=== PATIENT | male | born 1955 | race Caucasian/White ===

== ENCOUNTER 2022-02-10 00:15 | Day surgery (SDC) | payer MEDICARE, SELFPAY ==
[2022-01-29 13:26] VITALS: BMI 26.4
[2022-02-10 08:28] VITALS: BP 138/88; PULSE 91; RESP 16; TEMP 36; O2SAT 98
--- NOTE | 2022-02-10 08:30 | PM.HPGS ---
History of Present Illness History of Present Illness Consent: Risks, benefits, and alternatives have been discussed and questions answered. Patient agrees to proceed with procedure. Chief complaint: family hx of colon polyps Narrative: Derik Gurrola is a 66 year old male here for screening colonoscopy, last one in 2010 Review of Systems Constitutional: Constitutional: Denies headache(s) and Denies weakness Eyes: Eyes: Denies blurry vision ENT: Reports Normal hearing present, Denies headache(s) and Denies neck pain Cardiovascular: Cardiovascular: Denies chest pain and Denies dyspnea Respiratory: Respiratory: Denies dyspnea Gastrointestinal: Gastrointestinal: Reports no additional gastrointestinal complaints Genitourinary: Genitourinary: Denies dysuria Musculoskeletal: Musculoskeletal: Denies neck pain Integumentary/Breasts: Skin/Breast: Denies dry skin Neurologic: Reports Normal hearing present, Denies headache(s) and Denies weakness Psychiatric: Psychiatric: Denies anxiety Endocrine: Endocrine: Denies change in body appearance Hematologic/Lymphatic: Hematologic/Lymphatic: Denies easy bleeding Allergic/Immunologic: Allergic/Immunologic: Denies urticaria PMFSH Past Medical History Medical History (Updated 12/06/21 @ 10:55 by Betty Gray DO) Hepatitis C antibody test negative Vasectomy planned Surgical History Surgical History H/O lymph node biopsy Family History Family History Grandparent Diabetes mellitus Family history of genetic disorder Father Family history of cardiovascular disease Carcinoma of colon Social History Social History Smoking packs per day: 1 Smoking cigarettes per day: 20.0 Years smoked: 3 Smoking pack-years: 3.00 Smoking status: Former smoker Tobacco type: cigarettes Alcohol intake: never Substance use type: does not use Living arrangements: with family Spiritual care concerns: No Meds Home Medications and Allergies Home Medications Medication Instructions Recorded Confirmed Type lisinopril 10 mg tablet See Rx Instructions .ROUTE 11/25/21 02/10/22 Rx .COMPLEX #90 tablet simvastatin 10 mg tablet See Rx Instructions .ROUTE 11/25/21 02/10/22 Rx .COMPLEX #90 tablet Allergies Allergy/AdvReac Type Severity Reaction Status Date / Time methylprednisolone Allergy Unknown muscle pain Verified 02/10/22 08:27 Penicillins Allergy Unknown sick to Verified 02/10/22 08:27 his stomach rosuvastatin Allergy Unknown muscle pain Verified 02/10/22 08:27 Exam Const: General: comfortable and no acute distress HENMT: General nose exam: Normal nares present Eyes: General: appearance normal, both eyes and all related structures Neck: Neck: no JVD Resp: Auscultation: clear to auscultation bilaterally Cardio: Rate: regular rate Rhythm: regular rhythm GI: Inspection: non-distended GI Palp: Yes Soft to palpation Skin: General skin exam: normal color Neuro: General: gait normal Speech: normal speech Extrem: General: normal to inspection Psych: Mental Status: mental status grossly normal Assessment and Plan Assessment and plan (1) Screening for colon cancer: Code(s): Z12.11 - Encounter for screening for malignant neoplasm of colon Status: Acute Assessment and Plan: colonoscopy
[2022-02-10] MEDS: LACTATED RINGERS 1,000 ML 150 ML IV CONT (08:35)
--- NOTE | 2022-02-10 08:36 | WPDANESEPPF ---
Anes - Initial Pre Proc Eval Procedure: Operation Date: 02/10/22 09:30 Proposed Procedures p Screening Colonoscopy - Jak Antonio MD Date/Time: 02/10/22 08:36 Surgeon: Jak Antonio MD Pre Op Diagnosis: family hx of colon polyps Patient Data Age: 66 Gender: M Height: 1.8 m Weight: 86.5 kg Last Vital Signs Temp 96.8 F L 02/10/22 08:28 Pulse 91 02/10/22 08:28 Resp 16 02/10/22 08:28 BP 138/88 02/10/22 08:28 Pulse Ox 98 02/10/22 08:28 Allergies Allergy/AdvReac Type Severity Reaction Status Date / Time methylprednisolone Allergy Unknown muscle pain Verified 02/10/22 08:27 Penicillins Allergy Unknown sick to Verified 02/10/22 08:27 his stomach rosuvastatin Allergy Unknown muscle pain Verified 02/10/22 08:27 Home Medications Medication Instructions Recorded Confirmed Type lisinopril 10 mg tablet See Rx Instructions .ROUTE 11/25/21 02/10/22 Rx .COMPLEX #90 tablet simvastatin 10 mg tablet See Rx Instructions .ROUTE 11/25/21 02/10/22 Rx .COMPLEX #90 tablet Patient hx anesthesia problems: none Family hx anesthesia problems: none Results Review: All pre-operative results and documents have been reviewed as part of the pre-operative evaluation. [facility] Past Medical History Medical History (Updated 12/06/21 @ 10:55 by Betty Gray DO) Hepatitis C antibody test negative Vasectomy planned Surgical History Surgical History H/O lymph node biopsy Family History Family History Grandparent Diabetes mellitus Family history of genetic disorder Father Family history of cardiovascular disease Carcinoma of colon Social History Social History Smoking packs per day: 1 Smoking cigarettes per day: 20.0 Years smoked: 3 Smoking pack-years: 3.00 Smoking status: Former smoker Tobacco type: cigarettes Alcohol intake: never Substance use type: does not use Living arrangements: with family Spiritual care concerns: No Anes - Eval Final PreProcedure Day of Procedure 02/10/22 08:36 Patient weight: normal Heart: regular rate and rhythm Lungs: clear to auscultation Airway: Mallampati scale class II Neurological: alert and oriented Last oral intake: >/= 8 hours ASA classification: II Emergent: no Anesthetic plan: proceed Anesthesia type and monitoring: general GIVS and standard monitoring Results Review: All pre-operative results and documents have been reviewed as part of the pre-operative evaluation. Informed Consent: The patient's anesthetic plan and its attendant risks and benefits were discussed with the patient/family/POA. Questions were solicited and answers provided to the satisfaction of the patient/family/POA.
[2022-02-10 08:58] VITALS: BP 91/67; PULSE 92; RESP 20; O2SAT 93
[2022-02-10 09:08] VITALS: BP 92/75; PULSE 92; RESP 20; O2SAT 95
[2022-02-10 09:18] VITALS: BP 106/77; PULSE 90; RESP 20; O2SAT 96
--- NOTE | 2022-02-10 09:37 | SUR.PHASEII ---
DR GONZALEZ AWARE OF BLOOD PRESSURE 106/77, HR 92, PT AWAKE, TALKING, WALKING WITHOUT DIFFICULTY, NO CONCERNS. NO NEW ORDERS RECEIVED.
== END 2022-02-10 09:47 | disposition home or self-care (01) ==
PROVIDERS: PCP Family Medicine; Visit Provider Internal Medicine Gastroenterology
PROC: 0DJD8ZZ Inspection of Lower Intestinal Tract, Via Natural or Artificial Opening Endoscopic (ICD-10-PCS; CPT 45378; principal; 2022-02-10 09:30)
DX: Z12.11 Encounter for screening for malignant neoplasm of colon (principal); C18.7 Malignant neoplasm of sigmoid colon; K57.30 Diverticulosis of large intestine without perforation or abscess without bleeding; K64.8 Other hemorrhoids; Z87.891 Personal history of nicotine dependence
CPT/HCPCS: 45380; 45381; 88305; J2704; J7120

== ENCOUNTER 2022-02-14 08:32 | Outpatient (CLI) | payer MEDICARE, SELFPAY ==
--- NOTE | ~2022-02-14 | CT_ITS ---
EXAMINATION: CT abdomen pelvis w con EXAM DATE: 02/14/2022 09:22 INDICATION: C18.7 - Malignant neoplasm of sigmoid colon. TECHNIQUE: Spiral CT of the abdomen and pelvis was performed following intravenous injection of 100 m L Omnipaque 350. Axial, coronal and sagittal images of the abdomen and pelvis were reviewed. The do se-length product (DLP) for this examination was 540.95 mGy-cm. The exposure was tailored according to patient size (auto mA exposure control), and iterative reconstruction (ASIR) was used as additiona l dose reduction technique. There is no prior study for comparison. FINDINGS: The liver, spleen, adrenal glands and pancreas are unremarkable. No evidence of obstructi ve biliary disease. Along the dependent wall of the gallbladder. Portal and splenic veins are patent . Kidneys enhance symmetrically. There is no hydronephrosis. Prostate measures 5.5 cm transverse dimension, moderately enlarged. There are small bilateral inguinal fat-containing hernias. The bladd er is unremarkable. There is no retroperitoneal or pelvic lymphadenopathy. There is mild scattered arteriosclerotic disease. The appendix is normal. There is mild sigmoid colonic diverticulosis. There is no adjacent inflammat ory change to suggest diverticulitis. The stomach and small bowel are unremarkable. There is expecte d amount of colonic stool. No free intraperitoneal gas. The heart is normal in size. There are n o pericardial or pleural effusions. The lung bases are unremarkable. There are no osteoblastic or o steolytic lesions identified. IMPRESSION: 1. No evidence of metastatic disease. 2. Mild scattered colonic diverticulosis. 3. Small inguinal hernias. 4. Prostatomegaly. Reviewed, dictated and finalized at location A.
[2022-02-14 09:16] LABS: Estimated Glomerular Filt Rate 55
== END 2022-02-14 08:33 | disposition home or self-care (01) ==
PROVIDERS: PCP Family Medicine; Visit Provider Internal Medicine Gastroenterology
DX: C18.7 Malignant neoplasm of sigmoid colon (principal); K57.30 Diverticulosis of large intestine without perforation or abscess without bleeding; N40.0 Benign prostatic hyperplasia without lower urinary tract symptoms
CPT/HCPCS: 74177; Q9967

== ENCOUNTER 2022-02-21 09:45 | Outpatient (CLI) | payer MEDICARE, SELFPAY ==
--- NOTE | ~2022-02-21 | XR_ITS ---
EXAMINATION: XR chest 2V EXAM DATE: 02/21/2022 10:56 INDICATION: C18.9 - Malignant neoplasm of colon, unspecified, HX HBP TECHNIQUE: Frontal and lateral projections of the chest obtained and reviewed. Comparison is made to prior examination from 09/21/2018. FINDINGS: The lungs are clear. There are no pleural effusions. The cardiomediastinal silhouette is within normal limits. There is no pneumothorax suspected. The bones and soft tissues are unremarkab le. There is no significant interval change. IMPRESSION: No acute cardiopulmonary findings. Reviewed, dictated and finalized at location B.
--- NOTE | 2022-02-21 10:34 | ECG_ITS ---
Measurements Intervals [place] Rate: 55 P: 48 SD: 168 QRS: 22 QRSD: 85 T: 32 QT: 415 QTc: 399 Interpretive Statements SINUS BRADYCARDIA OTHERWISE NORMAL EKG NO PREVIOUS ECG AVAILABLE FOR COMPARISON Electronically Signed On 02-21-2022 15:49:18 CDT by Ousmane Floyd M.D.
[2022-02-21 10:56] LABS: Basophils Absolute Auto 0.1 K/mm3 (0.0-0.1); Basophils Percent Auto 1.2 % (0.2-1.2); Eosinophils Absolute Auto 0.2 K/mm3 (0-0.3); Eosinophils Percent Auto 2.9 % (0-4.4); Hematocrit 45.1 % (42.0-52.0); Hemoglobin 15.2 g/dL (14.0-18.0); Immature Granulocyte Absolute 0.04 K/mm3 (0.00-0.031); Immature Granulocyte Percent A 0.5 % (0-0.5); Lymphocytes Absolute Auto 1.75 K/mm3 (0.9-3.2); Lymphocytes Percent Auto 21.3 % (18.3-44.2); Mean Corpuscular HGB Conc 33.7 g/dl (32-36); Mean Corpuscular Hemoglobin 29.8 pg (26-34); Mean Corpuscular Volume 88.4 fl (80-100); Monocytes Absolute Auto 0.7 K/mm3 (0.1-0.6); Monocytes Percent Auto 8.9 % (2.6-8.5); Neutrophils Absolute Auto 5.4 K/mm3 (1.3-6.7); Neutrophils Percent Auto 65.2 % (45.5-73.1); Platelet Count Result 273 k/mm3 (150-375); Red Cell Distribution Width 12.7 % (11.5-14.5); White Blood Count 8.2 K/mm3 (4.5-10.0)
[2022-02-21 11:06] LABS: Anion Gap 6 mmol/L (8-16); Blood Urea Nitrogen 13 mg/dL (9-20); Calcium 8.7 mg/dL (8.4-10.2); Carbon Dioxide 26 mmol/L (22-30); Chloride 106 mmol/L (98-107); Estimated Glomerular Filt Rate 60; Glucose 99 mg/dL (65-110); Potassium 4.6 mmol/L (3.4-5.0); Sodium 138 mmol/L (137-145)
== END 2022-02-21 09:46 | disposition home or self-care (01) ==
LOC: ANHSURGERY 09:49
PROVIDERS: PCP Family Medicine; Visit Provider Surgery
DX: C18.9 Malignant neoplasm of colon, unspecified (principal); R00.1 Bradycardia, unspecified
CPT/HCPCS: 36415; 71046; 80048; 82378; 85025; 86850; 86900; 86901; 93005

== ENCOUNTER 2022-03-13 17:19 | Inpatient (IN) | payer MEDICARE, SELFPAY ==
[2022-02-21 09:59] VITALS: BP 127/81; PULSE 59; RESP 16; TEMP 36.4; O2SAT 98; BMI 27.1
--- NOTE | 2022-02-21 10:09 | PC.NURSE ---
Report to the Outpatient Waiting Room, entrance under the green pavilion located off [facility], at time __6:30AM on date __02/28/22 . OR Time: __8:30AM . - You and your visitor will be asked a series of questions to screen for COVID 19 for your protection. - A mask is required within the hospital. Preoperative COVID Testing Requirements: No COVID Test needed if: (proof is required; if not received patient will have Rapid Test prior to entry) - Patient has received COVID Vaccine at least 14 days prior to procedure date or - Patient has positive COVID test result within last 90 days of surgery date. COVID Test needed if above criteria is not met If not COVID vaccinated a COVID test must be conducted within 72 hours of surgery and patient is asked to isolate self from time of testing until procedure. You will go to the [employer] [facility] for your COVID testing. The [employer] [facility] site is located at the corner of [address] [facility]. You will only be called if COVID results are positive and your surgeon may reschedule your elective surgery date. Patients may have clear liquids (water, carbonated beverages, clear teas, apple juice) until 3 hours prior to surgery with a maximum of 20 ounces. - No food from midnight until time of surgery - Infants may have breast milk until 4 hours before surgery, formula 6 hours prior to surgery. - Children will be allowed to drink immediately following surgery. If applicable, please bring a bottle or sippy cup to assist with drinking. Juice, water, soda, and popsicles are readily available. For infants on formula, please bring formula the day of surgery. Pacifiers are allowed. Take the following medications with a SIP of water the morning of surgery: ____NONE Medications to discontinue per physician NONE Date to take last dose Please no make-up, nail serbian, hairspray, perfume, deodorant, or body powder the day of surgery. No jewelry (including any body piercings) or valuables the day of surgery, leave them at home. Please take a shower or bath the night before, or the morning of, surgery with an antibacterial soap. Wear comfortable, loose fitting clothing. Children are encouraged to wear pajamas. - Jewelry must be removed prior to entering the operating room. Rings and piercings that are not removed may be cut off. - The hospital will not accept responsibility for valuables. - Please leave all valuables, including medications, at home the day of surgery. If you are going home after surgery, a licensed milk wagon driver must drive you home. - NO public transportation without another adult. - We recommend that an adult stay with you for 24 hours following discharge. - We also recommend that you do not drive, make important decision, drink alcoholic beverages, or take any drugs that were not prescribed by your health care provider for at least 24 hours after your discharge time. For Pediatric surgeries, we recommend two adults accompany the child home (only one inside the building at this time). One visitor will be allowed to accompany the patient into the hospital. Patients visitor will be instructed to remain with patient at all times or leave the building. We will allow the visitor to come back to the postoperative area when patient is ready. Follow any additional instructions given to you from your surgeon. ENSURE NUTRITIONAL BUNDLE BOWEL PREP HIBICLENS SHOWER DAY BEFORE AND MORNING OF SURGERY Telephone instructions given to __PATIENT and asked if any additional questions and then verbalized understanding. Patient advised to call surgeon office or pre surgery nurse liaison [phone] if any additional questions.
--- NOTE | 2022-03-05 08:42 | PC.NURSE ---
Report to the Outpatient Waiting Room, entrance under the green pavilion located off [facility], at time __10:00AM on date __03/13/22 . OR Time: __12:00PM . - You and your visitor will be asked a series of questions to screen for COVID 19 for your protection. - A mask is required within the hospital. Preoperative COVID Testing Requirements: No COVID Test needed if: (proof is required; if not received patient will have Rapid Test prior to entry) - Patient has received COVID Vaccine at least 14 days prior to procedure date or - Patient has positive COVID test result within last 90 days of surgery date. COVID Test needed if above criteria is not met If not COVID vaccinated a COVID test must be conducted within 72 hours of surgery and patient is asked to isolate self from time of testing until procedure. You will go to the [employer] [facility] for your COVID testing. The [employer] [facility] site is located at the corner of [address] [facility]. You will only be called if COVID results are positive and your surgeon may reschedule your elective surgery date. Patients may have clear liquids (water, carbonated beverages, clear teas, apple juice) until 3 hours prior to surgery with a maximum of 20 ounces. - No food from midnight until time of surgery - Infants may have breast milk until 4 hours before surgery, formula 6 hours prior to surgery. - Children will be allowed to drink immediately following surgery. If applicable, please bring a bottle or sippy cup to assist with drinking. Juice, water, soda, and popsicles are readily available. For infants on formula, please bring formula the day of surgery. Pacifiers are allowed. Take the following medications with a SIP of water the morning of surgery: __NONE Medications to discontinue per physician NONE Date to take last dose Please no make-up, nail gibraltarian, hairspray, perfume, deodorant, or body powder the day of surgery. No jewelry (including any body piercings) or valuables the day of surgery, leave them at home. Please take a shower or bath the night before, or the morning of, surgery with an antibacterial soap. Wear comfortable, loose fitting clothing. Children are encouraged to wear pajamas. - Jewelry must be removed prior to entering the operating room. Rings and piercings that are not removed may be cut off. - The hospital will not accept responsibility for valuables. - Please leave all valuables, including medications, at home the day of surgery. If you are going home after surgery, a licensed tilt tray driver must drive you home. - NO public transportation without another adult. - We recommend that an adult stay with you for 24 hours following discharge. - We also recommend that you do not drive, make important decision, drink alcoholic beverages, or take any drugs that were not prescribed by your health care provider for at least 24 hours after your discharge time. For Pediatric surgeries, we recommend two adults accompany the child home (only one inside the building at this time). One visitor will be allowed to accompany the patient into the hospital. Patients visitor will be instructed to remain with patient at all times or leave the building. We will allow the visitor to come back to the postoperative area when patient is ready. Follow any additional instructions given to you from your surgeon. Telephone instructions given to __PATIENT and asked if any additional questions and then verbalized understanding. Patient advised to call surgeon office or pre surgery nurse liaison [phone] if any additional questions.
[2022-03-13] VITALS (15 sets, daily range): BP systolic 109–149; BP diastolic 44–79; PULSE 71–112; RESP 12–20; TEMP 36.1–36.9; O2SAT 92–98
[2022-03-13] MEDS: ACETAMINOPHEN 500 MG TABLET 1000 MG PO (10:04)
[2022-03-13] MEDS: LACTATED RINGERS 1,000 ML 30 ML IV CONT ×2 (10:30→15:42)
[2022-03-13] MEDS: KETOROLAC 15 MG/ML VIAL (*BKC) IV PUSH (10:46)
--- NOTE | 2022-03-13 11:23 | P.PNAN_ITS ---
Anes - Initial Pre Proc Eval Procedure: Operation Date: 03/13/22 12:00 Proposed Procedures p Hand Assisted Laparoscopic Sigmoidectomy - Eddie Westfall MD Date/Time: 03/13/22 11:23 Surgeon: Eddie Westfall MD Pre Op Diagnosis: sigmoid colon CA Patient Data Age: 66 Gender: M Height: 1.8 m Weight: 88.1 kg Last Vital Signs Temp 36.4 C 02/21/22 09:59 Pulse 59 L 02/21/22 09:59 Resp 16 02/21/22 09:59 BP 127/81 02/21/22 09:59 Pulse Ox 98 02/21/22 09:59 Allergies Allergy/AdvReac Type Severity Reaction Status Date / Time methylprednisolone AdvReac Unknown muscle pain Verified 03/13/22 10:02 Penicillins AdvReac Unknown Nausea Verified 03/13/22 10:02 rosuvastatin AdvReac Unknown muscle pain Verified 03/13/22 10:02 Home Medications Medication Instructions Recorded Confirmed Type erythromycin 500 mg tablet 1 g PO .COMPLEX #6 tablet 02/19/22 03/13/22 Rx neomycin 500 mg tablet 1 g PO .COMPLEX #6 tablet 02/19/22 03/13/22 Rx lisinopril 10 mg PO HS 02/21/22 03/13/22 History simvastatin 10 mg PO HS 02/21/22 03/13/22 History Patient hx anesthesia problems: post op nausea/vomiting Family hx anesthesia problems: none Results Review: All pre-operative results and documents have been reviewed as part of the pre-operative evaluation. [facility] Past Medical History Medical History Hepatitis C antibody test negative Hyperlipemia Hypertension Neoplasm of sigmoid, malignant Vasectomy planned Surgical History Surgical History H/O lymph node biopsy History of knee surgery right knee Family History Family History Grandparent Diabetes mellitus Family history of genetic disorder Father Family history of cardiovascular disease Carcinoma of colon Mother , age 48 Kidney disease Social History Social History Smoking packs per day: 0.5 Smoking cigarettes per day: 10.0 Years smoked: 10 Smoking pack-years: 5.00 Smoking status: Former smoker Tobacco type: cigarettes Smoking end date: 05/09/75 Alcohol intake: never Substance use: never Substance use type: does not use Living arrangements: with family Additional living arrangements comments: 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 Informed Consent: The patient's anesthetic plan and its attendant risks and benefits were discussed with the patient/family/POA. Questions were solicited and answers provided to the satisfaction of the patient/family
[2022-03-13] MEDS: ALVIMOPAN 12 MG CAPSULE PO (11:32)
--- NOTE | 2022-03-13 11:33 | WPDHPUPDATE1 ---
History and Physical Update Update Date/Time: 03/13/22 11:33 History and Physical has been reviewed, including an updated exam of the patient. There are NO changes in the patient's condition. Risks, benefits, and alternatives have been discussed and questions answered. Patient agrees to proceed with procedure.
[2022-03-13] MEDS: ceFAZolin 2 GM/D5W 50 ML 2 GM/50 ML BAG IVPB (11:56)
[2022-03-13] MEDS: metroNIDAZOLE 500 MG/ISO 100ML 500 MG/100 ML BAG 100 MG IVPB (12:16)
--- NOTE | 2022-03-13 15:36 | W.PM.PROC2 ---
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 It was tattooed just above and below the tumor. Preoperative CT scan was negative. After bowel preparation he is taken to surgery now for laparoscopic sigmoidectomy. Findings No evidence of metastatic disease. Tumor was palpable in the very distal sigmoid upper rectal area. Initial leak test after the anastomosis was positive but after suturing no further leak was noted. Anastomosis looked good by proctosigmoidoscopy prior to closure. Description of Procedure The patient was taken to surgery and induced into general anesthesia. He was placed in lithotomy with Real stirrups. Oneill catheter was placed. Rectal tube was placed and rectal irrigation was carried out. The abdomen is prepped and draped. A lower abdominal incision was marked on the skin for the hand access port. Local was infiltrated in this anticipated incision as well as in the deeper subcutaneous tissues and eventually the fascia. Incision was made dissection was carried down through the subcutaneous. We dissected through the midline fascia and then eventually encountered the posterior rectus peritoneum. Peritoneum was elevated and we entered the peritoneal cavity. This opening was extended the length of the wound. The Roque wound guard was then placed. A GelPort was placed. With a hand in the abdomen, a 10 11 port was placed in the left mid abdomen. Similarly a 10 11 port was placed in the midline near the umbilicus. A 12 mm port was placed in the right mid abdomen. We started with the camera in the left sided port. The sigmoid was exposed and the small bowel was quarantine to the upper abdomen. Some lateral attachments to the sigmoid and descending colon were taken down. Virtually all the dissection was done with the LigaSure. I then divided lateral peritoneal attachments to the descending colon to further mobilize the descending colon and sigmoid for anastomosis in the pelvis. It did not appear necessary to proceed with splenic flexure mobilization. We then turned our attention to the pelvis. The tumor had been tattooed just below and above. I was able to find both tattoos. The distal tattoo was right at the peritoneal reflection. I continued dissecting and the lateral attachments of the sigmoid and then located the left ureter. This was dissected circumferentially and a red vessel loop was passed around the ureter and clipped to itself for easily identifying the ureter later in the surgery. We dissected in the distal sigmoid mesentery and found the junction of the inferior mesenteric artery with the aorta. I dissected around the ELIANA just above its origin. Once I had dissected it circumferentially, it was divided with an Endo-RONNI vascular load. There was no bleeding. I then divided the mesentery just above the ELIANA and angled towards the proximal line of resection in the sigmoid colon. This was done with the LigaSure. Once I was near the the bowel, I then elevated the base of the mesentery and dissected just above the sacral promontory. I looked at both the left and the right lateral peritoneal attachments to the distal sigmoid and upper rectum. These were carefully divided with the LigaSure as well. When I was level with the sacral promontory, I then developed a plane in the presacral space using the LigaSure and dissected into the area of the upper or mid rectum. This was about the level of the distal tattoo. I was able to palpate the tumor which was closer to the proximal tattoo. I then
[2022-03-13] MEDS: ONDANSETRON INJ 4 MG/2 ML VIAL IV PUSH (16:06)
[2022-03-13] MEDS: diphenhydrAMINE HCl INJ 50 MG/ML VIAL 25 MG IV PUSH (16:44)
--- NOTE | 2022-03-13 17:30 | ADMGEN ---
This patient, Derik Gurrola, was admitted to Medical Room 256-01. Patient/family oriented to hospital policies and general routines including ID bracelet, bed and alarms, visiting hours, pain management, procedures, bathroom and other care routines, personal items, smoking policy, room service/diet, and visiting hours. Information on how to activate the Rapid Response Team has been discussed. Patient/Family are encouraged to report perceived risks to care and to ask questions if they do not understand what they are told or what they should do.
[2022-03-13] MEDS: LACTATED RINGERS 1,000 ML 100 ML IV CONT (18:25)
[2022-03-13] MEDS: HYDROcodone/acetaminophen (*CRX) 10-325 MG TABLET 1 TAB PO (21:09)
[2022-03-13] MEDS: SIMVASTATIN 10 MG TABLET PO (21:11)
[2022-03-13] MEDS: lisinopriL 10 MG TABLET PO (21:12)
[2022-03-13] MEDS: ENOXAPARIN 30 MG/0.3 ML SYRINGE SUB-Q (21:12)
[2022-03-13] MEDS: FAMOTIDINE 20 MG/2 ML VIAL IV PUSH (21:12)
[2022-03-14 03:32] VITALS: BP 111/60; PULSE 99; RESP 16; TEMP 37.3; O2SAT 93
[2022-03-14] MEDS: LACTATED RINGERS 1,000 ML 100 ML IV CONT (03:41)
[2022-03-14] MEDS: HYDROcodone/acetaminophen (*CRX) 5-325 MG TABLET 1 TAB PO ×3 (03:41→18:40)
[2022-03-14 05:58] LABS: Hemoglobin 13.6 g/dL (14.0-18.0); Mean Corpuscular HGB Conc 33.2 g/dl (32-36); Mean Corpuscular Hemoglobin 30.1 pg (26-34); Mean Corpuscular Volume 90.7 fl (80-100); Mean Platelet Volume 10.3 fl (7.4-10.4); Platelet Count Result 248 k/mm3 (150-375); Red Blood Count 4.52 M/mm3 (4.6-6.20); Red Cell Distribution Width 12.5 % (11.5-14.5); White Blood Count 15.8 K/mm3 (4.5-10.0)
[2022-03-14 06:09] LABS: Anion Gap 6 mmol/L (8-16); Blood Urea Nitrogen 16 mg/dL (9-20); Calcium 8.3 mg/dL (8.4-10.2); Carbon Dioxide 24 mmol/L (22-30); Chloride 106 mmol/L (98-107); Estimated CRCL calculation 48 ml/min; Estimated Glomerular Filt Rate 50; Glucose 135 mg/dL (65-110); Potassium 4.7 mmol/L (3.4-5.0); Sodium 136 mmol/L (137-145)
[2022-03-14 08:16] VITALS: BP 132/68; PULSE 90; RESP 17; TEMP 36.6; O2SAT 95
[2022-03-14] MEDS: FAMOTIDINE 20 MG/2 ML VIAL IV PUSH ×2 (08:47→20:35)
[2022-03-14] MEDS: ENOXAPARIN 30 MG/0.3 ML SYRINGE SUB-Q ×2 (08:48→20:35)
--- NOTE | 2022-03-14 13:44 | PM.PNGS ---
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 Tolerating liquids. Comfortable with oral analgesics. As active normal bowel sounds in all incisions healing well. Will discontinue Oneill catheter and advanced to low-fiber diet. This can be advanced to regular diet possibly tomorrow. Will recheck labs again tomorrow morning. He seems to be progressing very nicely. Subjective Subjective Date/Time Seen: 03/14/22 13:44 Post Op day: 1 Patient reports: pain is less, tolerating liquids well, no flatus and no bowel movement Exam GI: Inspection: non-distended and incision (All incisions dry and healing well) GI Palp: Yes Soft to palpation and Yes Tenderness to palpation present (GI) ( minimal appropriate tenderness) Auscultation: normoactive bowel sounds Objective Data Vital Signs Vital Signs: Vital Signs - 24 hr 03/13/22 15:45 03/13/22 16:00 03/13/22 16:15 Temperature 36.3 C L Pulse Rate 77 91 82 Respiratory Rate 12 18 16 Blood Pressure 131/76 143/76 H 135/75 Pulse Oximetry 93 95 94 03/13/22 16:30 03/13/22 16:45 03/13/22 17:00 Temperature Pulse Rate 71 77 87 Respiratory Rate 14 16 16 Blood Pressure 130/79 128/78 137/72 Pulse Oximetry 92 93 94 03/13/22 17:15 03/13/22 17:38 03/13/22 17:50 Temperature 36.5 C Pulse Rate 78 78 Respiratory Rate 14 12 12 Blood Pressure 136/78 126/69 Pulse Oximetry 95 95 96 03/13/22 17:58 03/13/22 18:31 03/13/22 19:21 Temperature 36.1 C L 36.6 C 36.2 C L Pulse Rate 77 82 96 Respiratory Rate 12 14 12 Blood Pressure 124/56 L 133/73 131/72 Pulse Oximetry 96 94 97 03/13/22 19:54 03/13/22 23:17 03/14/22 03:32 Temperature 36.9 C 36.2 C L 37.3 C Pulse Rate 112 H 102 H 99 Respiratory Rate 17 18 16 Blood Pressure 149/44 H 109/54 L 111/60 Pulse Oximetry 94 92 93 03/14/22 08:16 Temperature 36.6 C Pulse Rate 90 Respiratory Rate 17 Blood Pressure 132/68 Pulse Oximetry 95 Intake/Output Intake/Output: Intake & Output 03/11/22 03/12/22 03/13/22 03/14/22 23:59 23:59 23:59 23:59 Intake Total 3900 1940 Output Total -50 950 Balance 3950 990 Meds/Results Medications: Active Medications Generic Name Dose Route Start Last Admin Trade Name Freq PRN Reason Stop Dose Admin Acetaminophen 500 mg 03/13/22 17:19 Acetaminophen 500 Mg Tablet PO Q6H PRN Mild Pain (1-3) or Fever Hydrocodone Bitart/Acetaminophen 1 tab 03/13/22 17:19 03/14/22 12:19 Hydrocodone/Acetaminophen (*Crx) 5-325 Mg Tablet PO 1 tab Q4H PRN Administration Pain Rated 4-6 Hydrocodone Bitart/Acetaminophen 1 tab 03/13/22 17:19 03/13/22 21:09 Hydrocodone/Acetaminophen (*Crx) 10-325 Mg Tablet PO 1 tab Q4H PRN Administration Pain Rated 7-10 Alvimopan 12 mg 03/14/22 21:00 Alvimopan 12 Mg Capsule PO 03/21/22 20:59 Q12HR HARPREET Enoxaparin Sodium 30 mg 03/13/22 21:00 03/14/22 08:48 Enoxaparin 30 Mg/0.3 Ml Syringe SUB-Q 30 mg Q12HR HARPREET Administration Famotidine 20 mg 03/13/22 21:00 03/14/22 08:47 Famotidine 20 Mg/2 Ml Vial IV PUSH 20 mg Q12HR HARPREET Administration Lisinopril 10 mg 03/13/22 21:00 03/13/22 21:12 Lisinopril 10 Mg Tablet PO 10 mg HS HARPREET Administration Morphine Sulfate 2 mg 03/13/22 17:19 Morphine Sulfate (*Crx) 2 Mg/Ml Inj IV PUSH Q2H PRN Pain Rated 4-6 Morphine Sulfate 4 mg 03/13/22 17:19 Morphine Sulfate (*Crx) 4 Mg/Ml Inj IV PUSH Q2H PRN Pain Rated 7-10 Naloxone HCl 0.1 mg 03/13/22 17:19 Naloxone Hcl 0.4 Mg/Ml Vial IV PUSH Q2M PRN Opiate Reversal Ondansetron HCl 4 mg 03/13/22 17:19 Ondansetron Inj 4 Mg/2 Ml Vial IV PUSH Q4H PRN Nausea And Vomiting Simvastatin 10 mg 03/13/22 21:00 03/13/22 21:11 Simvastatin 10 Mg Tablet PO 10 mg HS HARPREET Administration
--- NOTE | 2022-03-14 14:44 | WPDANESPN ---
Anes - Prog Note Post-Op Date/Time: 03/14/22 14:44 Cardiovascular status: normal Respiratory status: normal Airway patency: baseline Mental status: baseline Post-Op hydration status: normal Vital Signs: Last Vital Signs Temp 36.6 C 03/14/22 08:16 Pulse 90 03/14/22 08:16 Resp 17 03/14/22 08:16 BP 132/68 03/14/22 08:16 Pulse Ox 95 03/14/22 08:16 Pain Score (VAS): 2 I/O: Intake & Output 03/13/22 03/14/22 03/14/22 23:59 07:59 15:59 Intake Total 2900 1400 540 Output Total -50 950 2000 Balance 2950 450 -1460 Laboratory Tests 03/14/22 05:08 03/14/22 05:08 03/14/22 03/14/22 05:08 05:08 WBC 15.8 H RBC 4.52 L Hgb 13.6 L Hct 41.0 L MCV 90.7 MCH 30.1 MCHC 33.2 RDW 12.5 Plt Count 248 MPV 10.3 Sodium 136 L Potassium 4.7 Chloride 106 Carbon Dioxide 24 Anion Gap 6 L BUN 16 Creatinine 1.40 H Estim Creat Clear Calc 48 Estimated GFR 50 L Glucose 135 H Calcium 8.3 L Post-procedural complaints: none Patient Feedback: Patient satisfied with anesthetic care.
[2022-03-14] MEDS: SIMVASTATIN 10 MG TABLET PO (20:35)
[2022-03-14] MEDS: ALVIMOPAN 12 MG CAPSULE PO (20:35)
[2022-03-14] MEDS: lisinopriL 10 MG TABLET PO (20:35)
[2022-03-14 22:09] VITALS: BP 147/77; PULSE 79; RESP 16; TEMP 36.5; O2SAT 94
[2022-03-14 22:20] VITALS: O2SAT 96
[2022-03-15 02:00] VITALS: BP 130/74; PULSE 85; RESP 16; TEMP 36.7; O2SAT 93
[2022-03-15 06:00] VITALS: BP 151/75; PULSE 87; RESP 16; TEMP 36.8; O2SAT 93
[2022-03-15 06:10] LABS: Hematocrit 37.9 % (42.0-52.0); Hemoglobin 12.2 g/dL (14.0-18.0); Mean Corpuscular HGB Conc 32.2 g/dl (32-36); Mean Corpuscular Hemoglobin 29.8 pg (26-34); Mean Corpuscular Volume 92.4 fl (80-100); Platelet Count Result 197 k/mm3 (150-375); Red Cell Distribution Width 12.9 % (11.5-14.5)
[2022-03-15] MEDS: HYDROcodone/acetaminophen (*CRX) 10-325 MG TABLET 1 TAB PO ×3 (06:14→16:43)
[2022-03-15 06:21] LABS: Anion Gap 4 mmol/L (8-16); Blood Urea Nitrogen 17 mg/dL (9-20); Calcium 8.1 mg/dL (8.4-10.2); Carbon Dioxide 28 mmol/L (22-30); Chloride 106 mmol/L (98-107); Estimated CRCL calculation 48 ml/min; Estimated Glomerular Filt Rate 50; Glucose 94 mg/dL (65-110); Potassium 3.9 mmol/L (3.4-5.0); Sodium 138 mmol/L (137-145)
[2022-03-15] MEDS: ALVIMOPAN 12 MG CAPSULE PO ×2 (08:44→20:50)
[2022-03-15] MEDS: ENOXAPARIN 30 MG/0.3 ML SYRINGE SUB-Q ×2 (08:45→20:50)
[2022-03-15] MEDS: FAMOTIDINE 20 MG/2 ML VIAL IV PUSH ×2 (08:45→20:50)
--- NOTE | 2022-03-15 13:10 | PM.PNGS ---
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 Tolerating Low-fiber soft diet. Comfortable with oral analgesics. Has active normal bowel sounds and all incisions healing well. This can be advanced to regular diet possibly tomorrow. Will recheck labs again tomorrow morning (CBC) -- as hemoglobin slightly down again and patient has had a little bleeding from the anal area. He seems to be progressing very nicely. Patient know that if he begins passing significant gas or has a bowel movement this afternoon they will let the nurse know and we may alter plans and let him go home this afternoon but otherwise will watch another 24 hours and hopefully home in a.m. tomorrow. Subjective Subjective Date/Time Seen: 03/15/22 11:10 patient lying in bed when I entered the room. States that he feels pretty well. States that he tolerated his breakfast of soft pancakes fairly well this morning. He denies nausea. Also however denies any flatus or bowel movement yet. Review of Systems Review of Systems: All systems reviewed & are unremarkable except as noted in HPI and below Constitutional: Constitutional: Reports as per HPI, Denies chills and Denies fever(s) Cardiovascular: Cardiovascular: Denies chest pain and Denies dyspnea Respiratory: Respiratory: Reports no additional respiratory complaints and Denies dyspnea Gastrointestinal: Gastrointestinal: Reports as per HPI and Denies bloating Exam Const: General: cooperative, healthy appearing and comfortable Resp: Effort & Inspection: normal respiratory effort Auscultation: clear to auscultation bilaterally GI: Inspection: non-distended and incision (All incisions dry and healing well) Auscultation: normoactive bowel sounds Objective Data Vital Signs Vital Signs: Vital Signs - 24 hr 03/14/22 22:09 03/14/22 22:20 03/15/22 02:00 Temperature 36.5 C 36.7 C Pulse Rate 79 85 Respiratory Rate 16 16 Blood Pressure 147/77 H 130/74 Pulse Oximetry 94 96 93 03/15/22 06:00 Temperature 36.8 C Pulse Rate 87 Respiratory Rate 16 Blood Pressure 151/75 H Pulse Oximetry 93 Intake/Output Intake/Output: Intake & Output 03/12/22 03/13/22 03/14/2222 23:59 23:59 23:59 23:59 Intake Total 3900 2630 860 Output Total -50 2950 700 Balance 3950 -320 160 Meds/Results Medications: Active Medications Generic Name Dose Route Start Last Admin Trade Name Freq PRN Reason Stop Dose Admin Acetaminophen 500 mg 03/13/22 17:19 Acetaminophen 500 Mg Tablet PO Q6H PRN Mild Pain (1-3) or Fever Hydrocodone Bitart/Acetaminophen 1 tab 03/13/22 17:19 03/14/22 18:40 Hydrocodone/Acetaminophen (*Crx) 5-325 Mg Tablet PO 1 tab Q4H PRN Administration Pain Rated 4-6 Hydrocodone Bitart/Acetaminophen 1 tab 03/13/22 17:19 03/15/22 10:31 Hydrocodone/Acetaminophen (*Crx) 10-325 Mg Tablet PO 1 tab Q4H PRN Administration Pain Rated 7-10 Alvimopan 12 mg 03/14/22 21:00 03/15/22 08:44 Alvimopan 12 Mg Capsule PO 03/21/22 20:59 12 mg Q12HR HARPREET Administration Enoxaparin Sodium 30 mg 03/13/22 21:00 03/15/22 08:45 Enoxaparin 30 Mg/0.3 Ml Syringe SUB-Q 30 mg Q12HR HARPREET Administration Famotidine 20 mg 03/13/22 21:00 03/15/22 08:45 Famotidine 20 Mg/2 Ml Vial IV PUSH 20 mg Q12HR HARPREET Administration Lisinopril 10 mg 03/13/22 21:00 03/14/22 20:35 Lisinopril 10 Mg Tablet PO 10 mg HS AHRPREET Administration Morphine Sulfate 2 mg 03/13/22 17:19 Morphine Sulfate (*Crx) 2 Mg/Ml Inj IV PUSH Q2H PRN Pain Rated 4-6 Morphine Sulfate 4 mg 03/13/22 17:19 Morphine Sulfate (*Crx) 4 Mg/Ml Inj IV PUSH Q2H PRN Pain Rated 7-10 Naloxone HCl 0.1 mg 03/13/22 17:19 Naloxone Hcl 0.4 Mg/Ml Vial IV PUSH Q2M PRN Opiate Reversal On
[2022-03-15 19:36] VITALS: BP 130/90; PULSE 83; RESP 17; TEMP 36.3; O2SAT 94
[2022-03-15] MEDS: lisinopriL 10 MG TABLET PO (20:50)
[2022-03-15] MEDS: SIMVASTATIN 10 MG TABLET PO (20:50)
[2022-03-15 23:20] VITALS: O2SAT 93
[2022-03-16 03:50] VITALS: BP 119/81; PULSE 74; RESP 16; TEMP 36.3; O2SAT 93
[2022-03-16 06:52] LABS: Basophils Absolute Auto 0.1 K/mm3 (0.0-0.1); Basophils Percent Auto 0.9 % (0.2-1.2); Eosinophils Absolute Auto 0.2 K/mm3 (0-0.3); Eosinophils Percent Auto 1.7 % (0-4.4); Hematocrit 37.2 % (42.0-52.0); Hemoglobin 12.1 g/dL (14.0-18.0); Immature Granulocyte Absolute 0.04 K/mm3 (0.00-0.031); Immature Granulocyte Percent A 0.4 % (0-0.5); Lymphocytes Absolute Auto 1.63 K/mm3 (0.9-3.2); Lymphocytes Percent Auto 17.3 % (18.3-44.2); Mean Corpuscular HGB Conc 32.5 g/dl (32-36); Mean Corpuscular Hemoglobin 29.8 pg (26-34); Mean Corpuscular Volume 91.6 fl (80-100); Mean Platelet Volume 9.9 fl (7.4-10.4); Monocytes Absolute Auto 1.1 K/mm3 (0.1-0.6); Monocytes Percent Auto 11.2 % (2.6-8.5); Neutrophils Absolute Auto 6.5 K/mm3 (1.3-6.7); Neutrophils Percent Auto 68.5 % (45.5-73.1); Platelet Count Result 211 k/mm3 (150-375); Red Blood Count 4.06 M/mm3 (4.6-6.20); Red Cell Distribution Width 12.9 % (11.5-14.5); White Blood Count 9.4 K/mm3 (4.5-10.0)
[2022-03-16 08:00] VITALS: PULSE 76; RESP 18; O2SAT 95
[2022-03-16] MEDS: ALVIMOPAN 12 MG CAPSULE PO (08:05)
[2022-03-16] MEDS: ENOXAPARIN 30 MG/0.3 ML SYRINGE SUB-Q (08:05)
[2022-03-16] MEDS: FAMOTIDINE 20 MG/2 ML VIAL IV PUSH (08:06)
[2022-03-16] MEDS: HYDROcodone/acetaminophen (*CRX) 10-325 MG TABLET 1 TAB PO (08:10)
--- NOTE | 2022-03-16 10:18 | PC.NURSE ---
Pt concerned about no bm's and not passing gas, x1 ducolex tablet ordered per MD Rosas.
[2022-03-16] MEDS: BISACODYL 5 MG TABLET EC PO (10:21)
[2022-03-16 11:19] VITALS: BP 156/86; PULSE 76; RESP 18; TEMP 36.7; O2SAT 95
--- NOTE | 2022-03-16 11:25 | PC.NURSE ---
spoken with MD Rosas stated bloody stool normal finding, continue to monitor, possible discharge this afternoon, continue low fiber diet for lunch
--- NOTE | 2022-03-16 12:28 | PM.DS ---
DS: Admitting Diagnosis Discharge Date 03/16/2022 Admitting Diagnosis sigmoid colon carcinoma DS: Discharge Diagnosis Discharge Diagnosis (1) Neoplasm of sigmoid, malignant: Onset Date: ~02/2022 Code(s): C18.7 - Malignant neoplasm of sigmoid colon Status: Chronic Assessment and Plan: This was the main reason for the patient's admission. He underwent successful laparoscopic hand assisted sigmoid colon resection with reanastomosis. By postop day 1. He was beginning to tolerate liquids and soft foods. By postop day 2 he has still not passed gas or bowel movement but was tolerating a soft low-fiber diet. By postop day 3 he started passing a little gas and then had small bowel movement with little bit of blood clot. He was feeling well without abdominal pain other than when he moves or twist. Therefore, after watching for a little bit longer after that initial bowel movement at his request he was discharged in the care of his . Home-going instructions were discussed with him. He will see Dr. Westfall in follow-up in approximately 7-10 days. (2) Prediabetes: Onset Date: Unknown Code(s): R73.03 - Prediabetes Status: Acute Assessment and Plan: Continue to follow usual precautions watching his carbohydrates as previously instructed by his PCP. (3) Hypertension: Onset Date: Unknown Code(s): I10 - Essential (primary) hypertension Status: Acute Assessment and Plan: No real problems with hypertension during his admission. He will be resuming his usual medications at home upon discharge. DS: Summary Hospital Course Reason for hospitalization: for surgery for his colon cancer Hospital Course: The sigmoid colon CA was the main reason for the patient's admission. He underwent successful laparoscopic hand assisted sigmoid colon resection with reanastomosis. By postop day 1. He was beginning to tolerate liquids and soft foods. By postop day 2 he has still not passed gas or bowel movement but was tolerating a soft low-fiber diet. By postop day 3 he started passing a little gas and then had small bowel movement with little bit of blood clot. He was feeling well without abdominal pain other than when he moves or twist. Therefore, after watching for a little bit longer after that initial bowel movement at his request he was discharged in the care of his . Homegoing instructions were discussed with him. He will see Dr. Westfall in follow-up in approximately 7-10 days Pathology report was still pending upon discharge and will be discussed with the patient the office. Status at Discharge Functional status at discharge: independent ambulation Overall status at discharge: patient is not back to baseline Time Spent with Patient Time attestation: Total time spent providing and/or coordinating discharge services: < 30 min Time spent: Less than 30 minutes Specific discharge activities: discussed home going instructions with patient. Checked and pain pill prescription has been electronically sent to his pharmacy by Dr. Westfall. Exam Const: General: cooperative, comfortable, alert and awake Orientation/consciousness: patient oriented x3 HENMT: Head: normal to inspection Mouth: Yes moist mucous membranes Eyes: Sclera: sclerae normal Pupils: Equal, round and reactive pupils present Neck: Neck: normal visual inspection and no JVD Chest: Chest palpation & inspection: normal inspection of the chest Resp: Effort & Inspection: normal respiratory effort Auscultation: clear to auscultation bilaterally GI: Inspection: incision ( all incisions clean and dry.) GI Palp: Yes abdominal tenderness ( Mild near lower abdominal incision) and Yes Soft to palpation Auscultation: normal bowel sounds and normoactive bowel sounds Neuro: General: patient oriented x3 Cranial nerves: Yes Equal, round and reactive pupils present DS: Data Data Completed and Pending Pending s
== END 2022-03-16 14:48 | disposition home or self-care (01) | DRG 331 ==
LOC: ANH2MED 03-14 13:43
PROVIDERS: Admitting Provider Surgery; PCP Family Medicine; Visit Provider Surgery
PROC: 0D1E4Z4 Bypass Large Intestine to Cutaneous, Percutaneous Endoscopic Approach (ICD-10-PCS; principal; 2022-03-13 12:00)
DX: C18.7 Malignant neoplasm of sigmoid colon (principal); R73.03 Prediabetes; I10 Essential (primary) hypertension; E78.5 Hyperlipidemia, unspecified; Z87.891 Personal history of nicotine dependence
CPT/HCPCS: 36415; 80048; 85025; 85027; 86850; 86900; 86901; 88309; A9270; C1713; C1729; J0690; J1100; J1170; J1200; J1650; J1885; J2250; J2405; J2704; J2710; J3010; J7030; J7120

== ENCOUNTER 2022-10-28 00:38 | Day surgery (SDC) | payer MEDICARE, SELFPAY ==
[2022-10-17 15:25] VITALS: BMI 24.0
[2022-10-28 11:16] VITALS: BP 145/83; PULSE 66; RESP 18; TEMP 36.1; O2SAT 100
[2022-10-28] MEDS: LACTATED RINGERS 1,000 ML 150 ML IV CONT (11:20)
--- NOTE | 2022-10-28 11:42 | WPDANESEPPF ---
Anes - Initial Pre Proc Eval Procedure: Operation Date: 10/28/22 13:00 Proposed Procedures p Colonoscopy - Jak Antonio MD Date/Time: 10/28/22 11:42 Surgeon: Jak Antonio MD Pre Op Diagnosis: ABNORMAL PET SCAN, HX OF COLON CANCER Patient Data Age: 67 Gender: M Height: 1.8 m Weight: 76.3 kg Last Vital Signs Temp 36.1 C L 10/28/22 11:16 Pulse 66 10/28/22 11:16 Resp 18 10/28/22 11:16 BP 145/83 H 10/28/22 11:16 Pulse Ox 100 10/28/22 11:16 O2 Del Method Room Air 10/28/22 11:16 Allergies Allergy/AdvReac Type Severity Reaction Status Date / Time methylprednisolone AdvReac Unknown muscle pain Verified 10/28/22 11:16 Penicillins AdvReac Unknown Nausea Verified 10/28/22 11:16 rosuvastatin AdvReac Unknown muscle pain Verified 10/28/22 11:16 Home Medications Medication Instructions Recorded Confirmed Type lisinopril 10 mg tablet See Rx Instructions .Route 08/07/22 10/17/22 Rx .COMPLEX #90 tabs simvastatin 10 mg tablet 10 mg PO HS #90 tabs 08/07/22 10/17/22 Rx Patient hx anesthesia problems: none Family hx anesthesia problems: none Results Review: All pre-operative results and documents have been reviewed as part of the pre-operative evaluation. [facility] Past Medical History Medical History Hepatitis C antibody test negative Hyperlipemia Hypertension (Unknown) Neoplasm of sigmoid, malignant (~02/2022) Vasectomy planned Surgical History Surgical History H/O lymph node biopsy History of knee surgery right knee S/P laparoscopic-assisted sigmoidectomy 03/13/22 Family History Family History Grandparent Diabetes mellitus Family history of genetic disorder Father Family history of cardiovascular disease Carcinoma of colon Mother , age 48 Kidney disease Social History Social History Smoking packs per day: 0.5 Smoking cigarettes per day: 10.0 Years smoked: 10 Smoking pack-years: 5.00 Smoking status: Former smoker Second hand tobacco smoke exposure: No Alcohol intake: never Substance use: never Substance use type: does not use Living arrangements: with family Additional living arrangements comments: 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 Informed Consent: The patient's anesthetic plan and its attendant risks and benefits were discussed with the patient/family/POA. Questions were solicited and answers provided to the satisfaction of the patient/family/POA.
--- NOTE | 2022-10-28 12:28 | PM.HPGS ---
History of Present Illness History of Present Illness Consent: Risks, benefits, and alternatives have been discussed and questions answered. Patient agrees to proceed with procedure. Chief complaint: ABNORMAL PET SCAN, HX OF COLON CANCER Narrative: Derik Gurrola is a 67 year old male diagnosed with colon cancer 02/2022 s/p RIZWAN sigmoidectomy and chemotherapy doing well, recent PET scan showed uptake at site of anastomosis otherwise negative. Review of Systems Constitutional: Constitutional: Denies headache(s) and Denies weakness Eyes: Eyes: Denies blurry vision ENT: Reports Normal hearing present, Denies headache(s) and Denies neck pain Cardiovascular: Cardiovascular: Denies chest pain and Denies dyspnea Respiratory: Respiratory: Denies dyspnea Gastrointestinal: Gastrointestinal: Reports no additional gastrointestinal complaints Genitourinary: Genitourinary: Denies dysuria Musculoskeletal: Musculoskeletal: Denies neck pain Integumentary/Breasts: Skin/Breast: Denies dry skin Neurologic: Reports Normal hearing present, Denies headache(s) and Denies weakness Psychiatric: Psychiatric: Denies anxiety Endocrine: Endocrine: Denies change in body appearance Hematologic/Lymphatic: Hematologic/Lymphatic: Denies easy bleeding Allergic/Immunologic: Allergic/Immunologic: Denies urticaria PMFSH Past Medical History Medical History Hepatitis C antibody test negative Hyperlipemia Hypertension (Unknown) Neoplasm of sigmoid, malignant (~02/2022) Vasectomy planned Surgical History Surgical History (Updated 10/28/22 @ 12:29 by Jak Antonio MD) H/O lymph node biopsy History of knee surgery right knee S/P laparoscopic-assisted sigmoidectomy 03/13/22 Family History Family History Grandparent Diabetes mellitus Family history of genetic disorder Father Family history of cardiovascular disease Carcinoma of colon Mother , age 48 Kidney disease Social History Social History Smoking packs per day: 0.5 Smoking cigarettes per day: 10.0 Years smoked: 10 Smoking pack-years: 5.00 Smoking status: Former smoker Second hand tobacco smoke exposure: No Alcohol intake: never Substance use: never Substance use type: does not use Living arrangements: with family Additional living arrangements comments: 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[employer] Spiritual care concerns: No Meds Home Medications and Allergies Home Medications Medication Instructions Recorded Confirmed Type lisinopril 10 mg tablet See Rx Instructions .Route 08/07/22 10/17/22 Rx .COMPLEX #90 tabs simvastatin 10 mg tablet 10 mg PO HS #90 tabs 08/07/22 10/17/22 Rx Allergies Allergy/AdvReac Type Severity Reaction Status Date / Time methylprednisolone AdvReac Unknown muscle pain Verified 10/28/22 11:16 Penicillins AdvReac Unknown Nausea Verified 10/28/22 11:16 rosuvastatin AdvReac Unknown muscle pain Verified 10/28/22 11:16 Vital Signs Vital Signs - 24 hr 10/28/22 11:16 Temperature 97.0 F L Pulse Rate 66 Respiratory Rate 18 Blood Pressure 145/83 H Pulse Oximetry 100 Oxygen Delivery Room Air Exam Const: General: comfortable and no acute distress HENMT: Face/Nose/Sinus: Normal nares present Eyes: General: appearance normal, both eyes and all related structures Neck: Neck: no JVD Resp: Auscultation: clear to auscultation bilaterally Cardio: Rate: regular rate Rhythm: regular rhythm GI: Inspection: non-distended GI Palp: Yes Soft to palpation Skin: General skin exam: normal color Neuro: General: gait normal Speech: normal speech Extrem: General: normal to inspection Psych: Mental Status: mental status grossly normal Assessment and Plan Assessment and plan
[2022-10-28 12:58] VITALS: BP 119/79; PULSE 90; RESP 21; O2SAT 98
[2022-10-28 13:08] VITALS: BP 124/84; PULSE 73; RESP 18; O2SAT 98
[2022-10-28 13:18] VITALS: BP 135/85; PULSE 68; RESP 15; O2SAT 98
== END 2022-10-28 13:27 | disposition home or self-care (01) ==
PROVIDERS: PCP Family Medicine; Visit Provider Internal Medicine Gastroenterology
PROC: 0DJD8ZZ Inspection of Lower Intestinal Tract, Via Natural or Artificial Opening Endoscopic (ICD-10-PCS; CPT 45378; principal; 2022-10-28 13:00)
DX: K56.699 Other intestinal obstruction unspecified as to partial versus complete obstruction (principal); K57.30 Diverticulosis of large intestine without perforation or abscess without bleeding; K64.8 Other hemorrhoids; Z98.0 Intestinal bypass and anastomosis status; Z90.49 Acquired absence of other specified parts of digestive tract; Z85.038 Personal history of other malignant neoplasm of large intestine; Z92.21 Personal history of antineoplastic chemotherapy; I10 Essential (primary) hypertension; E78.5 Hyperlipidemia, unspecified; Z87.891 Personal history of nicotine dependence
CPT/HCPCS: 45386; 45380; 88305; 88342; J2704; J7120

== ENCOUNTER 2022-12-02 12:31 | Outpatient (CLI) | payer MEDICARE, SELFPAY ==
[2022-12-22 13:30] LABS: Kit Draw Collected
== END 2022-12-02 12:32 | disposition home or self-care (01) ==
LOC: ANHGOSHLAB 12:40
PROVIDERS: PCP Family Medicine; Visit Provider Family Medicine
DX: Z12.5 Encounter for screening for malignant neoplasm of prostate (principal)
CPT/HCPCS: 36415

== ENCOUNTER → 2022-12-04 09:10 | Outpatient (CLI) | payer MEDICARE, SELFPAY ==
--- NOTE | ~2022-12-04 | US_ITS ---
EXAMINATION: US right upper quadrant DATE: 12/04/2022 09:30 INDICATION: Elevated liver enzymes TECHNIQUE: Multiple grayscale and Doppler ultrasound images of the abdomen were obtained. COMPARISON: CT abdomen pelvis dated 02/14/2022 FINDINGS: The pancreatic head and body are normal in appearance. The pancreatic tail is not visualized. Liver has normal echogenicity and contour, with a smooth surface. No liver lesion identified. No intrahepat ic biliary duct dilation suspected. Portal venous flow was seen in the hepatopetal, normal direction and has normal Doppler waveform. There is an 8 mm echogenic nodule at the neck of the gallbladder whi ch does not appear mobile with decubitus imaging and without posterior acoustic shadowing consistent with a gallbladder polyp. The nodule is another sessile or with wide stalk but without evident associ ated wall thickening. Gallbladder is otherwise normal. No shadowing cholelithiasis. The common bile d uct measures 3 mm, which is normal. Sonographic Tilley sign was reported as negative by the sonograph er.Visualized portion of the right kidney demonstrates normal echogenicity and contour with no hydron ephrosis. IMPRESSION: 1. 8 mm gallbladder polyp for which 12 month follow-up ultrasound would be recommended. Reviewed, dictated and finalized at location L. UNICATIONS MAINTAINER IMPRESSION: 1. 8 mm gallbladder polyp for which 12 month follow-up ultrasound would be tyler mmended.
== END ==
PROVIDERS: PCP Family Medicine; Visit Provider Family Medicine
DX: R74.8 Abnormal levels of other serum enzymes (principal); K82.4 Cholesterolosis of gallbladder
CPT/HCPCS: 76705

== ENCOUNTER 2023-01-05 08:47 | Outpatient (CLI) | payer MEDICARE, SELFPAY ==
[2023-01-05 10:48] LABS: Kit Draw Collected
== END 2023-01-05 08:48 | disposition home or self-care (01) ==
LOC: ANHGOSHLAB 08:49
PROVIDERS: PCP Family Medicine; Visit Provider Family Medicine
DX: R74.8 Abnormal levels of other serum enzymes (principal); C18.9 Malignant neoplasm of colon, unspecified; R74.01 Elevation of levels of liver transaminase levels
CPT/HCPCS: 36415

== ENCOUNTER 2023-07-29 09:00 | Outpatient (CLI) | payer MEDICARE, SELFPAY ==
[2023-07-29 15:49] LABS: Kit Draw Collected
== END 2023-07-29 09:01 | disposition home or self-care (01) ==
LOC: ANHGOSHLAB 09:02
PROVIDERS: PCP Family Medicine; Visit Provider Nurse Practitioner
DX: E78.5 Hyperlipidemia, unspecified (principal); R73.03 Prediabetes
CPT/HCPCS: 36415

== ENCOUNTER → 2023-12-08 08:34 | Outpatient (CLI) | payer MEDICARE, SELFPAY ==
--- NOTE | ~2023-12-08 | US_ITS ---
Limited Abdominal Sonogram: Real-time sonographic imaging of the right upper quadrant was performed. Clinical History: Cholesterolosis of gallbladder Findings: The liver appears normal with no evidence of mass lesion or bile duct dilatation. Main por jaydon vein demonstrates normal direction of flow. The gallbladder is well distended, and demonstrates a 1 cm probable polyp near the gallbladder neck, unchanged. The common bile duct measures 4 mm. The p ancreas, aorta, and IVC are largely obscured by bowel gas shadowing. Impression: Probable 1 cm polyp near the gallbladder neck, stable to minimally increased in size given difference s in imaging technique. Reviewed, dictated and finalized at location M. CE RENTAL CLERK Impression: Probable 1 cm polyp near the gallbladder neck, stable to minimally increased in size given differences in imaging technique.
== END ==
PROVIDERS: PCP Family Medicine; Visit Provider Family Medicine
DX: K82.4 Cholesterolosis of gallbladder (principal)
CPT/HCPCS: 76705

== ENCOUNTER 2023-12-08 08:46 | Outpatient (CLI) | payer MEDICARE, SELFPAY ==
[2023-12-08 15:15] LABS: Kit Draw Collected
== END 2023-12-08 08:47 | disposition home or self-care (01) ==
LOC: ANHGOSHLAB 08:48
PROVIDERS: PCP Family Medicine; Visit Provider Nurse Practitioner
DX: R73.03 Prediabetes (principal); C18.7 Malignant neoplasm of sigmoid colon
CPT/HCPCS: 36415

== ENCOUNTER 2024-06-08 09:12 | Outpatient (CLI) | payer MEDICARE, SELFPAY ==
[2024-06-08 14:22] LABS: Kit Draw Collected
== END 2024-06-08 09:13 | disposition home or self-care (01) ==
LOC: ANHGOSHLAB 09:15
PROVIDERS: PCP Family Medicine; Visit Provider Nurse Practitioner
DX: E78.5 Hyperlipidemia, unspecified (principal); R73.03 Prediabetes; Z12.5 Encounter for screening for malignant neoplasm of prostate
CPT/HCPCS: 36415

== ENCOUNTER 2024-10-12 03:10 | Day surgery (SDC) | payer MEDICARE, SELFPAY ==
[2024-09-27 08:41] VITALS: BMI 27.3
[2024-10-12 06:33] VITALS: BP 135/89; PULSE 80; RESP 19; TEMP 36.2; O2SAT 98
[2024-10-12] MEDS: LACTATED RINGERS 1,000 ML 150 ML IV CONT (06:45)
--- NOTE | 2024-10-12 07:57 | WPDANESEPPF ---
Anes - Initial Pre Proc Eval Procedure: Operation Date: 10/12/24 08:00 Proposed Procedures p Colonoscopy - Jak Antonio MD Date/Time: 10/12/24 07:57 Surgeon: Jak Antonio MD Pre Op Diagnosis: Malignant Neoplasm of colon Patient Data Age: 69 Gender: M Height: 1.75 m Weight: 83.1 kg Last Vital Signs Temp 36.2 C L 10/12/24 06:33 Pulse 80 10/12/24 06:33 Resp 19 10/12/24 06:33 BP 135/89 10/12/24 06:33 Pulse Ox 98 10/12/24 06:33 O2 Del Method Room Air 10/12/24 06:33 Allergies Allergy/AdvReac Type Severity Reaction Status Date / Time methylprednisolone AdvReac Unknown muscle pain Verified 10/12/24 06:32 Penicillins AdvReac Unknown Nausea Verified 10/12/24 06:32 rosuvastatin AdvReac Unknown muscle pain Verified 10/12/24 06:32 Home Medications Medication Instructions Recorded Confirmed Type lisinopril 10 mg tablet See Rx Instructions .Route 08/17/24 10/12/24 Rx .COMPLEX #90 tabs Patient hx anesthesia problems: post op nausea/vomiting Family hx anesthesia problems: none Results Review: All pre-operative results and documents have been reviewed as part of the pre-operative evaluation. [facility] Past Medical History Medical History Hepatitis C antibody test negative Hyperlipemia Hypertension (Unknown) Neoplasm of sigmoid, malignant (~02/2022) Vasectomy planned Surgical History Surgical History H/O lymph node biopsy History of knee surgery right knee S/P laparoscopic-assisted sigmoidectomy 03/13/22 Family History Family History Grandparent Diabetes mellitus Family history of genetic disorder Father Family history of cardiovascular disease Carcinoma of colon Mother , age 48 Kidney disease Social History Social History Smoking packs per day: 1 Smoking cigarettes per day: 20.0 Years smoked: 10 Smoking pack-years: 10.00 Smoking status: Former smoker Tobacco type: cigarettes Second hand tobacco smoke exposure: No Alcohol intake: current Alcohol use details: 1 month Substance use: never Substance use type: does not use Lack of Transportation: No Lack of Food: Never True Current Housing: I Have Housing Concerned About Future Housing: No Difficulty Paying Gas/Electric Bills: No Difficulty Paying for Meds: No Currently Unemployed: No Education: Associate Degree Difficulty w/ Childcare or Family Care: No Living arrangements: with family Additional living arrangements comments: Occupation/Education: retired 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 Informed Consent: The patient's anesthetic plan and its attendant risks and benefits were discussed with the patient/family/POA. Questions were solicited and answers provided to the satisfaction of the patient/family/POA.
--- NOTE | 2024-10-12 08:00 | P.HP_ITS ---
History of Present Illness History of Present Illness Consent: Risks, benefits, and alternatives have been discussed and questions answered. Patient agrees to proceed with procedure. Chief complaint: Malignant Neoplasm of colon Narrative: Derik Gurrola is a 69 year old male diagnosed with colon cancer 02/2022 s/p RIZWAN sigmoidectomy and chemotherapy, last colonoscopy showed benign sigmoid stricture s/p dilation. He is doing ok now. Review of Systems Review of Systems: All systems reviewed & are unremarkable except as noted in HPI and below PMFSH Past Medical History Medical History (Updated 10/12/24 @ 08:04 by Jak Antonio MD) Hepatitis C antibody test negative History of colon cancer Hyperlipemia Hypertension (Unknown) Neoplasm of sigmoid, malignant (~02/2022) Vasectomy planned Surgical History Surgical History H/O lymph node biopsy History of knee surgery right knee S/P laparoscopic-assisted sigmoidectomy 03/13/22 Family History Family History Grandparent Diabetes mellitus Family history of genetic disorder Father Family history of cardiovascular disease Carcinoma of colon Mother , age 48 Kidney disease Social History Social History Smoking packs per day: 1 Smoking cigarettes per day: 20.0 Years smoked: 10 Smoking pack-years: 10.00 Smoking status: Former smoker Tobacco type: cigarettes Second hand tobacco smoke exposure: No Alcohol intake: current Alcohol use details: 1 month Substance use: never Substance use type: does not use Lack of Transportation: No Lack of Food: Never True Current Housing: I Have Housing Concerned About Future Housing: No Difficulty Paying Gas/Electric Bills: No Difficulty Paying for Meds: No Currently Unemployed: No Education: Associate Degree Difficulty w/ Childcare or Family Care: No Living arrangements: with family Additional living arrangements comments: Occupation/Education: retired 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 Spiritual care concerns: No Meds Home Medications and Allergies Home Medications Medication Instructions Recorded Confirmed Type lisinopril 10 mg tablet See Rx Instructions .Route 08/17/24 10/12/24 Rx .COMPLEX #90 tabs Allergies Allergy/AdvReac Type Severity Reaction Status Date / Time methylprednisolone AdvReac Unknown muscle pain Verified 10/12/24 06:32 Penicillins AdvReac Unknown Nausea Verified 10/12/24 06:32 rosuvastatin AdvReac Unknown muscle pain Verified 10/12/24 06:32 Vital Signs Vital Signs - 24 hr 10/12/24 06:33 Temperature 97.1 F L Pulse Rate 80 Respiratory Rate 19 Blood Pressure 135/89 Pulse Oximetry 98 Oxygen Delivery Room Air Exam Const: General: comfortable and no acute distress HENMT: Face/Nose/Sinus: Normal nares present Eyes: General: appearance normal, both eyes and all related structures Neck: Neck: no JVD Resp: Auscultation: clear to auscultation bilaterally Cardio: Rate: regular rate Rhythm: regular rhythm GI: Inspection: non-distended GI Palp: Yes Soft to palpation Skin: General skin exam: normal color Neuro: General: gait normal Speech: normal speech Extrem: General: normal to inspection Psych: Mental Status: mental status grossly normal Assessment and Plan Assessment and plan (1) S/P laparoscopic-assisted sigmoidectomy: Code(s): Z90.49 - Acquired absence of other specified parts of digestive tract Status: Acute (2) History of colon cancer: Code(s): Z85.038 - Personal history of other malignant neoplasm of large intestine Status: Acute Assessment and Plan: colonoscopy
[2024-10-12 08:14] VITALS: BP 90/58; PULSE 78; RESP 18; O2SAT 94
[2024-10-12 08:24] VITALS: BP 97/69; PULSE 71; RESP 19; O2SAT 96
[2024-10-12 08:34] VITALS: BP 103/72; PULSE 72; RESP 21; O2SAT 96
== END 2024-10-12 08:42 | disposition home or self-care (01) ==
PROVIDERS: PCP Family Medicine; Referring Provider Nurse Practitioner; Visit Provider Internal Medicine Gastroenterology
PROC: 0DJD8ZZ Inspection of Lower Intestinal Tract, Via Natural or Artificial Opening Endoscopic (ICD-10-PCS; CPT 45378; principal; 2024-10-12 08:00)
DX: Z08 Encounter for follow-up examination after completed treatment for malignant neoplasm (principal); K64.8 Other hemorrhoids; K57.30 Diverticulosis of large intestine without perforation or abscess without bleeding; E78.5 Hyperlipidemia, unspecified; I10 Essential (primary) hypertension; Z98.890 Other specified postprocedural states; Z98.0 Intestinal bypass and anastomosis status; Z90.49 Acquired absence of other specified parts of digestive tract; Z87.891 Personal history of nicotine dependence; Z92.21 Personal history of antineoplastic chemotherapy; Z85.038 Personal history of other malignant neoplasm of large intestine; Z80.0 Family history of malignant neoplasm of digestive organs; Z82.49 Family history of ischemic heart disease and other diseases of the circulatory system
CPT/HCPCS: 45378; J2704; J7120

== ENCOUNTER 2024-12-15 08:57 | Outpatient (CLI) | payer MEDICARE, SELFPAY ==
--- OUTSIDE RECORDS SUMMARY | 2024-12-15 09:10 | XMS_ITS | Referral Summary ---
Author Organization [facility] Address [address] [place] [address] Care Team Providers Care [employer] Name Role Phone TalatnydiasirenaBetty DO Primary Care Provider [phone] Lisa Rao WOOD MODEL BUILDER Unavailable [phone]- [phone] Jak Johnson MD Unavailable + Allergies Active Allergy Reactions Criticality Noted Date Comments Penicillins Vomiting Low 04/01/2022 Medications lisinopriL (PRINIVIL,ZESTRIL) 10 mg tablet 03/19/2022 Active Active Problems Problem Noted Date Diagnosed Date Malignant neoplasm of sigmoid colon ([facility]/HCC) Immunizations Name Administration Dates Next Due Influenza, Quadrivalent, Rec ombinant, Egg Free, Preservative Free, Intramuscular 12/06/2021,10/01/2020 Influenza, Unspecified 08/22/2022 Moderna Sars-cov-2 Bivalent Vaccine 50 Mcg/0.5 mL (12+ YRS)-Blue/Fajardo 08/22/2022 Pneumococcal Conjugate PCV 13 12/13/2018 Pneumococcal Polysaccharide PPV23 10/01/2020 ZOSTER LIVE 10/11/2015 Social History Tobacco Use Types Packs/Day Years Used Date Smoking Tobacco: Former Smokeless Tobacco: Never AUDIT-C Answer Date Recorded Frequency of Alcohol Consumption Not on file 01/08/2023 Q2: How many drinks containi ng alcohol do you have on a typical day when you are drinking? Patient does not drink Frequency of Binge Drinking Not on file 12/2022 Personal Safety Answer Date Recorded Getting School Help Needed Not on file 10/24 Sex and Gender Information Value Date Recorded Sex Assigned at Not on file Legal Sex Male 11:12 AM CDT Gender Identity Not on file Sexual Orientation Not on file Last Filed Vital Signs Vital Sign Reading Time Taken Comments Blood Pressure 156/87 07/05/2024 8:01 AM CDT Pulse 61 07/05/2024 8:01 AM CDT Temperature 36.4 C (97.6 F) 07/05/2024 8:01 AM CDT Respiratory Rate 16 07/05/2024 8:01 AM CDT Oxygen Saturation 98% 07/05/2024 8:01 AM CDT Inhaled Oxygen Concentration - - Weight 86.4 kg (190 lb 6.4 oz) 07/05/2024 8:01 A M CDT Height 177.8 cm (5' 10 ) 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 Body Mass Index 27.32 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 Plan of Treatment Not on file Procedures Procedure Name Priority Date/Time Associated Diagnosis Comments PSA DIAGNOSTIC Routine 07/05/2024 7:32 AM CDT Enlarged prostate CT CHEST ABDOMEN PELVIS W CONTRAST Schedule Routine, Read Routine (OP Routine) 06/29/2024 8:14 AM CDT Malignant neoplasm of sigmoid colon (CMS/HCC) (HCC) from Last 3 Months or Most Recently Relevant to Health Maintenance Results * PSA diagnostic (07/05/2024 7:32 AM CDT) PSA-Total 1.56 <=6.20 ng/mL Comment: Interpretive Data AGE SEX REFERENCE INTERVAL 0 minutes-150 years Female None 0 minutes-49 years Male None 50-59 years Male 0-3.90 60-69 years Male 0-5.40 70-79 years Male 0-6.20 80-150 years Male 0-6.20 The Lillie PSA Total assay procedure was used. Results from different manufacturers or methods may not be comparable. Serial testing should be performed using the same method. Current interpretive data last revised 22. Testing performed by: [facility], [address] [place] [address], [place]., [address] Blood 07/05/2024 7:32 AM CDT 07/05/2024 9:50 AM CDT Lisa Rao NP LAB BLOOD ORDERABLES Final Result [facility] [address] [facility] Department [place] [address] * CT chest abdomen pelvis with contrast (06/29/2024 8:14 AM CDT) Anatomical Region Laterality Modality Body N/A Computed Tomogra phy 06/29/2024 1:41 PM CDT Narrative 06/29/2024 1:54 PM CDT EXAM DESCRIPTION: CT CHEST ABDOMEN PELVIS W CONTRAST REASON FOR STUDY: follow up Colon Cancer, follow up colon cancer Colon ca dx February 2022 TECHNIQUE: CT scan of the chest, abdomen, and pelvis performed with intravenous and without oral contrast using helical scanning technique with dynamic intravenous contrast injection. Reconstructed coronal and sagittal MPR images reviewed. All images stored on PACS. Automated exposure control was used as a dose optimization technique for this examination. CONTRAST TYPE/DOSE: 100mL of IOVERSOL 350 MG IODINE/ML INTRAVENOUS SYRINGE injected via intravenous COMPARISON: 01/04/2024 FINDINGS: CHEST LUNGS: No focal pneumonic consolidation or pulmonary edema. No pleural effusion or pneumothorax. No suspicious pulmonary nodules. Central airways are patent. PLEURA: No effusion. No pneumothorax. MEDIASTINUM/RITA: No identified masses or abnormal nodes. HEART: Heart size is normal with no pericardial effusion. Iftn-cm-lbakqtur calcified athero scleroses of the coronary arteries. VASCULATURE CHEST: No thoracic aortic aneurysm or dissection. AXILLA: No adenopathy. CHEST WALL: No masses. No subcutaneous air. HARDWARE/LINES/TUBES: None. MUSCULOSKELETAL CHEST: Unchanged T7 lytic like lesion measuring 0.8 cm. ABDOMEN/PELVIS LIVER: Mild hepatic steatosis. GALLBLADDER: Cholelithiasis without evidence of acute cholecystitis. BILE DUCTS: No intrahepatic or extrahepatic ductal dilatation. SPLEEN: Normal size. No focal lesions. PANCREAS: No identified cystic or solid masses. No significant calcifications. No adjacent inflammation or peripancreatic fluid collections. Pancreatic duct not dilated. ADRENALS: Normal. KIDNEYS/URINARY TRACT: No identified significant cystic or solid masses. No visualized stones. No hydronephrosis or hydroureter. Symmetric enhancement. Partially collapsed thick-walled urinary bladder. GI: Status post colorectal anastomosis. Today, the colonic wall at the anastomotic site is more conspicuous compared to prior examination with unchanged surrounding fat stranding (image 127 of 183. Recommend close attention on subsequent follow-up examination. There is colonic diverticulosis without evidence of acute diverticulitis. The appendix is normal. No evidence of small-bowel obstruction. Small fat containing bilateral inguinal hernias. PERITONEUM: No ascites or free air. Redemonstrated are numerous prominent mesenteric lymph nodes measuring less than 1 cm in size. RETROPERITONEUM: No mass or adenopathy. REPRODUCTIVE: Enlarged prostate gland with mass effect on the posterior wall urinary bladder. Small bilateral hydroceles, right greater than left. VASCULATURE ABDOMEN: No abdominal aortic aneurysm. Mild calcified athero scleroses of the abdominal aorta. MUSCULOSKELETAL ABDOMEN PELVIS: No acute finding. Grade 1 anterolisthesis of L4 on L5 uncovering of the intervertebral disc. There is snsz-ai-lbvrmrvk multilevel degenerative intervertebral disc height loss. For reference, there is a large L2-L3 right paracentral disc bulge severe narrowing of the right lateral recess. Moderate L4-L5 disc bulge severe central spinal canal stenosis. MRI may prove helpful further evaluation if clinically desired. OTHER: No significant abnormality. IMPRESSION: Status post colorectal anastomosis. Today, the colonic wall at the anastomotic site is more conspicuous compared to prior examination with unchanged surrounding fat stranding. Recommend close attention on subsequent follow-up examination. Prostatomegaly. Recommend clinical correlation with serum PSA levels for further evaluation. Multilevel degenerative disc disease of the visualized thoracolumbar spine. MRI may prove helpful for further evaluation if clinically desired. Unchanged, T7 lytic like lesion measuring 0.8 cm. Follow-up MRI may prove helpful for further evaluation. Recommend close attention on subsequent follow-up examinations. THIS IS AN ELECTRONICALLY VERIFIED FINAL REPORT 06/29/2024 1:54 PM - Electronically signed by Rancho Gonzalez M.D. BB: BB Report ID: [id number] Reading Location: [id number] Procedure Note Rancho Gonzalez MD PhD - 06/29/2024 EXAM DESCRIPTION: CT CHEST ABDOMEN PELVIS W CONTRAST REASON FOR STUDY: follow up Colon Cancer, follow up colon cancer Colon ca dx February 2022 TECHNIQUE: CT scan of the chest, abdomen, and pelvis performed with intravenous and without oral contrast using helical scanning techniquewith dynamic intravenous contrast injection. Reconstructed coronal and sagittalMPR images reviewed. All images stored on PACS. Automated exposure control was used as a dose optimization technique for this examination. CONTRAST TYPE/DOSE: 100mL of IOVERSOL 350 MG IODINE/ML INTRAVENOUS SYRINGE injected via intravenous COMPARISON: 01/04/2024 FINDINGS: CHEST LUNGS: No focal pneumonic consolidation or pulmonary edema. No pleural effusion or pneumothorax. No suspicious pulmonary nodules. Centralairways are patent. PLEURA: No effusion. No pneumothorax. MEDIASTINUM/RITA: No identified masses or abnormal nodes. HEART: Heart size is normal with no pericardial effusion.Smbf-ei-unyvehfk calcified athero scleroses of the coronary arteries. VASCULATURE CHEST: No thoracic aortic aneurysm or dissection. AXILLA: No adenopathy. CHEST WALL: No masses. No subcutaneous air. HARDWARE/LINES/TUBES: None. MUSCULOSKELETAL CHEST: Unchanged T7 lytic like lesion measuring 0.8 cm. ABDOMEN/PELVIS LIVER: Mild hepatic steatosis. GALLBLADDER: Cholelithiasis without evidence of acute cholecystitis. BILE DUCTS: No intrahepatic or extrahepatic ductal dilatation. SPLEEN: Normal size. No focal lesions. PANCREAS: No identified cystic or solid masses. No significant calcifications. No adjacent inflammation or peripancreatic fluidcollections. Pancreatic duct not dilated. ADRENALS: Normal. KIDNEYS/URINARY TRACT: No identified significant cystic or solid masses.No visualized stones. No hydronephrosis or hydroureter. Symmetricenhancement. Partially collapsed thick-walled urinary bladder. GI: Status post colorectal anastomosis. Today, the colonic wall at the anastomotic site is more conspicuous compared to prior examination with unchanged surrounding fat stranding (image 127 of 183. Recommend close attention on subsequent follow-up examination. There is colonic diverticulosis without evidence of acute diverticulitis. The appendix is normal. No evidence of small-bowel obstruction. Small fat containing bilateral inguinal hernias. PERITONEUM: No ascites or free air. Redemonstrated are numerousprominent mesenteric lymph nodes measuring less than 1 cm in size. RETROPERITONEUM: No mass or adenopathy. REPRODUCTIVE: Enlarged prostate gland with mass effect on the posteriorwall urinary bladder. Small bilateral hydroceles, right greater than left. VASCULATURE ABDOMEN: No abdominal aortic aneurysm. Mild calcifiedathero scleroses of the abdominal aorta. MUSCULOSKELETAL ABDOMEN PELVIS: No acute finding. Grade 1anterolisthesis of L4 on L5 uncovering of the intervertebral disc. There zzmjfc-qz-nehyuphh multilevel degenerative intervertebral disc height loss. For reference,there is a large L2-L3 right paracentral disc bulge severe narrowing of theright lateral recess. Moderate L4-L5 disc bulge severe central spinal canal stenosis. MRI may prove helpful further evaluation if clinically desired. OTHER: No significant abnormality. IMPRESSION: Status post colorectal anastomosis. Today, the colonic wall at the anastomotic site is more conspicuous compared to prior examination with unchanged surrounding fat stranding. Recommend close attention onsubsequent follow-up examination. Prostatomegaly. Recommend clinical correlation with serum PSA levels for further evaluation. Multilevel degenerative disc disease of the visualized thoracolumbarspine. MRI may prove helpful for further evaluation if clinically desired. Unchanged, T7 lytic like lesion measuring 0.8 cm. Follow-up MRI mayprove helpful for further evaluation. Recommend close attention on subsequent follow-up examinations. THIS IS AN ELECTRONICALLY VERIFIED FINAL REPORT 06/29/2024 1:54 PM - Electronically signed by Rancho Gonzalez M.D. BB: [id number] Report ID: [id number] Reading Location: [id number] Lisa Rao NP IMG CT PROCEDURES Fi nal Result from Last 3 Months or Most Recently Relevant to Health Maintenance Insurance MEDICARE [facility] MEDICARE [facility] Care Teams [employer] Relationship Specialty Start Date End Date Betty Gray DO PCP - General Family Medicine 03/31/22 Lisa Rao NP [address] [facility] [address] [address] Nurse Practitioner Medical Oncology 01/01/23 Jak Johnson MD [address] [facility] [address] [place] [address] Referring Physician Gastroenterology 07/05/24
--- OUTSIDE RECORDS SUMMARY | 2024-12-15 09:10 | XMS_ITS | Clinical Summary ---
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 Gender Identity Not on file Sexual Orientation Not on file Plan of Treatment Health Maintenance Due Date Last Done Comments Colorectal Cancer Screening Colonoscopy (10 Years) 1955 Hepatitis C 1971 DTaP, Tdap and Td Vaccines ( 1 - Tdap) 1972 Zoster Vaccines (2 of 3) 12/06/2015 10/11/2015 Pneumococcal Vaccine: 65+ Years (2 of 2 - PPSV23 or PCV20) 12/13/2019 12/13/2018 COVID-19 Vaccine (3 - 2023-2 5 season) 2024 12/11/2020, 11/13/2020 Influenza Adult (#1) 2024 10/01/2020 RSV Immunization or 60+ Years (1 - 1-dose 75+ series) 2028 Meningococcal B Vaccine Aged Out No l onger eligible based on patient's age to complete this topic Meningococcal Vaccine Aged Out No brandon butch eligible based on patient's age to complete this topic RSV Immunizations Under 20 Months Aged Out No longer eligible b ased on patient's age to complete this topic Care Teams Digitizer Relationship Specialty Start Date End Date Betty Gray DO [address] [place] [address] PCP - General FAMILY PRACTICE 12/11/20
--- OUTSIDE RECORDS SUMMARY | 2024-12-15 09:10 | XMS_ITS | Clinical Summary ---
Author Organization [facility] Address [address] [place] [address] Care Team Providers Care Industrial Commercial Groundskeeper Name Role Phone TalatnydiasirenaBetty DO Primary Care Provider +1- [phone] Lisa Rao COUNT ROOM CLERK Unavailable +- [phone] Jak Johnson MD Unavailable + Allergies Active Allergy Reactions Criticality Noted Date Comments Penicillins Vomiting Low 04/01/2022 Medications lisinopriL (PRINIVIL,ZESTRIL) 10 mg tablet 03/19/2022 Active Active Problems Problem Noted Date Diagnosed Date Malignant neoplasm of sigmoid colon ([facility]/HCC) Immunizations Name Administration Dates Next Due Influenza, Quadrivalent, Rec ombinant, Egg Free, Preservative Free, Intramuscular 12/06/2021,10/01/2020 Influenza, Unspecified 08/22/2022 Moderna Sars-cov-2 Bivalent Vaccine 50 Mcg/0.5 mL (12+ YRS)-Blue/Fajardo 08/22/2022 Pneumococcal Conjugate PCV 13 12/13/2018 Pneumococcal Polysaccharide PPV23 10/01/2020 ZOSTER LIVE 10/11/2015 Surgical History Surgery Date Site/Laterality Comments REPLACEMENT UNICONDYLAR JOINT KNEE 10/09/2018 - 11/08/2018 Right CATARACT EXTRACTION, BILATERAL 06/16/2024 L first and then 06/30/24 was R Medical History Medical History Date Comments Colon cancer (CMS/HCC) (HCC) Multiple myeloma (HCC) Hypertension Hypercholesteremia Family History Medical History Relation Name Comments Colon cancer Father Prostate cancer Father Relation Name Status Comments Father Mother Sister Alive Social History Tobacco Use Types Packs/Day Years [...] on file Sexual Orientation Not on file Obstetrics History Last Filed Vital Signs Vital Sign Reading [...] cm (5' 10 ) 01/05/2024 8:09 AM STAIN MAKER Body Mass Index 27.32 01/05/2024 8:09 AM STAIN MAKER Plan of Treatment Health Maintenance Due Date Last Done Comments Colon Cancer Screening-Colonoscopy 1955 Depression Screening 1953 Fall Risk Assessment 1955 Hepatitis C Screening 1955 DTaP/Tdap/Td Vaccine (1 - Tdap) 1964 Hepatitis B Screening 1971 Zoster Vaccine (2 of 3) 12/06/2015 10/11/2015 Well Visit 65+ 2018 Covid-19 Vaccine (5 - 2023-2 5 season) 2024 08/22/2022, 10/09/2021, 12/11/2020, Additional history exists Influenza Vaccine (#1) 2024 2, 12/06/2021, 10/01/2020 Prostate Cancer Screening-PSA 07/05/2026, 01/05/2024, 07/09/2023 Pneumococcal vaccine 65+ Completed 10/01/2020, 02/2019 Abdominal Aortic Aneurysm (A AA) Screen Completed 06/29/2024, 01/04/2024, 07/02/2023 Procedures Procedure Name Priority Date/Time Associated Diagnosis [...] data last revised 22. Testing performed by: [facility], [address] [place] [address]., [address] Blood 07/05/2024 7:32 AM CDT 07/05/2024 9:50 AM CDT us Lisa Rao COUNT ROOM CLERK LAB BLOOD ORDERABLES Final Result [facility] [address] [facility] Department [place] [address] * CT chest abdomen pelvis with contrast [...] size is normal with no pericardial effusion. Ynhh-pc-idzahrye calcified athero scleroses of the coronary arteries. [...] uncovering of the intervertebral disc. There is zpvj-an-ndwuuytq multilevel degenerative intervertebral disc height loss. For [...] Rancho Gonzalez M.D. BB: BENJI Report ID: [id number] Reading Location: [id number] Procedure Note Rancho Gonzalez MD PhD - [...] Heart size is normal with no pericardial effusion.Irwj-by-kzdvgrvp calcified athero scleroses of the coronary arteries. [...] L5 uncovering of the intervertebral disc. There xhsimn-fg-wfutumai multilevel degenerative intervertebral disc height loss. For [...] Rancho Gonzalez M.D. BB: BENJI Report ID: [id number] Reading Location: [place] [address] Lisa Rao NP IMG CT PROCEDURES Fi nal Result from Last 3 Months or Most Recently Relevant to Health Maintenance Insurance MEDICARE [facility] MEDICARE [facility] Care Teams Industrial Commercial Groundskeeper Relationship Specialty Start Date End Date Betty Gray DO PCP - General Family Medicine 03/31/22 Lisa Rao NP [address] [place] [address] [address] Nurse Practitioner Medical Oncology 01/01/23 Jak Johnson MD [address] [facility] [address] [place] [address] Referring Physician Gastroenterology 07/05/24
--- OUTSIDE RECORDS SUMMARY | 2024-12-15 09:10 | XMS_ITS ---
Author Organization [facility] Address [address] [place] [address] Care Team Providers Care Plate Sensitizer Name Role Phone Betty Gray Primary Care Provider +1- [phone] Lisa Rao JUNIOR LEGAL SECRETARY Unavailable +- [phone] Jak Johnson MD Unavailable + Active Problems Problem Noted Date Diagnosed Date Malignant neoplasm of sigmoid colon (CMS/HCC) Current Oncology Plans No current plan information found. Past Plans Line Care Plan Name Start Date Discontinue Date Treatment Medications Discontinue Reason Plan Provider IV Maintenance Therapy Plan 04/24/2022 07/08/2023 No medications scheduled. Therapy Complete Tyree Raines Jr., MD Oncology Chemotherapy Treatment Plan Name Start Date Discontinue Date Treatment Medications Discontinue Reason Plan Provider Cycles XELOX: (Capecitab ine / OXALIplati n) 21 Day Cycles - Colon/Rect al 04/24/2022 07/08/2023 oxaliplatin (ELOXATIN)oxali platin (ELOXATIN) IVPB Therapy Complete Tyree Raines Jr., MD 8 of 8 cycles started Radiation Treatments * No radiation treatments are documented for this patient in [facility]. Treatments may have been administered in another system.
[2024-12-15 14:45] LABS: Alanine Aminotransferase 29 U/L (6-50); Albumin Level 4.1 g/dL (3.5-5.1); Alkaline Phosphatase 91 U/L (38-126); Anion Gap 8 mmol/L (4-12); Aspartate Amino Transferase 34 U/L (17-59); Bilirubin,Total 1.3 mg/dL (0.2-1.3); Blood Urea Nitrogen 16 mg/dL (9-20); Calcium 8.9 mg/dL (8.4-10.2); Carbon Dioxide 27 mmol/L (22-30); Chloride 105 mmol/L (98-107); Cholesterol 215 mg/dL (0-200); Estimated Glomerular Filt Rate 59; Glucose 89 mg/dL (65-110); HDL Direct 47 mg/dL; Potassium 4.8 mmol/L (3.4-5.0); Sodium 140 mmol/L (137-145); Triglycerides 104 mg/dL (<150)
[2024-12-15 14:54] LABS: Hematocrit 45.2 % (42.0-52.0); Hemoglobin 14.8 g/dL (14.0-18.0); Mean Corpuscular HGB Conc 32.7 g/dl (32-36); Mean Corpuscular Hemoglobin 29.6 pg (26-34); Mean Corpuscular Volume 90.4 fl (80-100); Mean Platelet Volume 10.8 fl (7.4-10.4); Platelet Count Result 200 k/mm3 (150-375); White Blood Count 5.9 K/mm3 (4.5-10.0)
[2024-12-15 14:56] LABS: LDL Cholesterol Direct 143 mg/dL
[2024-12-15 15:16] LABS: Prostate Specific Antigen 2.1 ng/mL (< OR = 4.0)
[2024-12-15 18:14] LABS: Hemoglobin A1C 5.6 % (<5.7)
== END 2024-12-15 08:58 | disposition home or self-care (01) ==
LOC: ANHGOSHLAB 09:00
PROVIDERS: PCP Family Medicine; Visit Provider Nurse Practitioner
DX: Z12.5 Encounter for screening for malignant neoplasm of prostate (principal); C18.7 Malignant neoplasm of sigmoid colon; I10 Essential (primary) hypertension; R73.03 Prediabetes; R74.8 Abnormal levels of other serum enzymes
CPT/HCPCS: 36415; 80053; 80061; 83036; 84153; 84443; 85027; G0103

== ENCOUNTER 2024-12-15 09:13 | Outpatient (CLI) | payer MEDICARE, SELFPAY ==
--- NOTE | ~2024-12-15 | US_ITS ---
US right upper quadrant INDICATION: PROCEDURE: Realtime right upper abdominal ultrasound. COMPARISON: No prior studies for comparison. FINDINGS: Pancreas is obscured by bowel gas. Liver echotexture is normal without focal mass or intra hepatic biliary dilatation. There is normal directional flow in the portal vein. There is a gallstone at the gallbladder neck. Common bile duct measures 4 mm. No sonographic Tilley 's sign. IMPRESSION: 1: Cholelithiasis. Reviewed, dictated and finalized at location B. ILE STYLIST IMPRESSION: 1: Cholelithiasis.
== END 2024-12-15 09:14 | disposition home or self-care (01) ==
LOC: GOSHIMG 09:14
PROVIDERS: PCP Family Medicine; Visit Provider Family Medicine
DX: K82.4 Cholesterolosis of gallbladder (principal)
CPT/HCPCS: 76705

== ENCOUNTER 2025-04-13 09:08 | Outpatient (CLI) | payer MEDICARE, SELFPAY ==
--- OUTSIDE RECORDS SUMMARY | 2025-04-13 09:41 | XMS_ITS | Referral Summary ---
Author Organization [facility] Address [address] [place] [address] Care Team Providers Care Diesel Technician Name Role Phone Betty Gray Primary Care Provider +1- [phone] Lisa Rao COLD STORAGE SUPERINTENDENT Unavailable +1- [phone] Jak Johnson MD Unavailable + Allergies Active Allergy Reactions Criticality Noted Date Comments Penicillins Vomiting Low 04/01/2022 Medications lisinopriL (PRINIVIL,ZESTRIL) 10 mg tablet 03/19/2022 Active simvastatin (ZOCOR) 10 mg tablet 12/21/2024 Active Active Problems Problem Noted Date Diagnosed Date Malignant neoplasm of sigmoid colon 04/01/2022 Immunizations Immunization Administration Dates Next Due Influenza, Quadrivalent, Rec [...] of Binge Drinking Not on file 12/2022 Sex and Gender Information Value Date Recorded Sex Assigned at Not on file Legal Sex Male 11:12 AM CDT Gender Identity Male 12/20/2024 8:54 AM BAKER BENCH Sexual Orientation Straight 12/20/2024 8: 54 AM BAKER BENCH Last Filed Vital Signs Vital Sign Reading Time Taken Comments Blood Pressure 134/84 01/03/2025 7:57 AM BAKER BENCH Pulse 87 01/03/2025 7:57 AM BAKER BENCH Temperature 36.2 C (97.1 F) 01/03/2025 7:57 AM BAKER BENCH Respiratory Rate 18 01/03/2025 7:57 AM BAKER BENCH Oxygen Saturation 98% 01/03/2025 7:57 AM BAKER BENCH Inhaled Oxygen Concentration - - Weight 86.2 kg (190 lb) 01/03/2025 7:57 AM BAKER BENCH Height 177.8 cm (5' 10) 01/05/2024 8:09 AM BAKER BENCH Body Mass Index 27.26 01/05/2024 8:09 AM BAKER BENCH Plan of Treatment Not on file Procedures Procedure Name Priority Date/Time Associated Diagnosis Comments CT CHEST ABDOMEN PELVIS W CONTRAST Schedule Routine, Read Routine (OP Routine) 12/27/2024 8:08 AM BAKER BENCH Malignant neoplasm of sigmoid colon (HCC) Enlarged prostate Lytic bone lesions on xray PSA DIAGNOSTIC Routine 07/05/2024 7:32 AM CDT Enlarged prostate from Last 3 Months or Most Recently Relevant to Health Maintenance Results * CT Chest Abdomen Pelvis W Contrast (12/27/2024 8:08 AM BAKER BENCH) Anatomical Region Laterality Modality Body N/A Computed Tomogra phy 12/30/2024 5:03 AM BAKER BENCH Narrative 12/30/2024 5:17 AM BAKER BENCH EXAM DESCRIPTION: CT CHEST ABDOMEN PELVIS W CONTRAST REASON FOR STUDY: Colon cancer, assess treatment response, thoracic back pain, T7 lytic lesion and DDD noted in the thoracic region, prostatomegaly; thickening at the anastomosis site Colon cancer, assess treatment response, thoracic back pain, T7 lytic lesion and DDD noted in the thoracic region, prostatomegaly; thickening at the ansastamosis site, Malignant neoplasm of sigmoid colon (CMS/HCC) (HCC), Enlarged prostate, Lytic bone lesions on xray TECHNIQUE: CT scan of the chest, abdomen, [...] IODINE/ML INTRAVENOUS SYRINGE injected via intravenous COMPARISON: 06/29/2024, 01/04/2024, 07/02/2023 FINDINGS: CHEST LUNGS: Tiny elongated linear nodular opacity in the periphery of the right upper lobe on images 30-31, new compared to the prior examination measuring 3 mm, with some hazy adjacent ground-glass. Minimal subsegmental scarring and atelectasis. No pneumonic consolidation. The central airways are patent. PLEURA: No effusion. No pneumothorax. MEDIASTINUM/RITA: Partially calcified 1 cm nodule within the inferior left thyroid lobe, stable. There is no mediastinal or hilar lymphadenopathy. HEART: Heart size is normal with no pericardial effusion. VASCULATURE CHEST: There are coronary artery calcifications. Atherosclerotic calcification of the thoracic aorta, without aneurysm. No dissection. Main pulmonary trunk normal in caliber. AXILLA: No adenopathy. CHEST WALL: No masses. No subcutaneous air. HARDWARE/LINES/TUBES: None. MUSCULOSKELETAL CHEST: There is an 8 mm lucent lesion within the T7 vertebral body to the right of midline is stable in size. No new osseous lesion. ABDOMEN/PELVIS LIVER: The liver is within normal limits in size. There is no suspicious hepatic lesion. GALLBLADDER: Cholelithiasis. No inflammatory changes. BILE DUCTS: No intrahepatic or extrahepatic ductal dilatation. SPLEEN: Normal size. No focal lesions. PANCREAS: No identified cystic or solid masses. No significant calcifications. No adjacent inflammation or peripancreatic fluid collections. Pancreatic duct not dilated. ADRENALS: Normal. KIDNEYS/URINARY TRACT: No identified significant cystic or solid masses. No visualized stones. No hydronephrosis or hydroureter. Symmetric enhancement. The urinary bladder is decompressed, accentuating wall thickness, stable in appearance. GI: Stomach is unremarkable. Small bowel loops are within normal limits in caliber. The appendix is normal. There is diverticulosis the colon. There are postsurgical changes related to partial colonic resection with anastomosis in the region of the rectosigmoid. There is some stranding adjacent to the anastomotic site, which is similar to the previous examinations. The more conspicuous wall thickening suggested on the most recent prior examination is not convincingly demonstrated on the current examination. Appearance is similar to that of December 2023. PERITONEUM: There is no free intraperitoneal air. There is no free fluid. No mesenteric adenopathy. Stranding in the mesentery adjacent to the colonic anastomosis is similar. RETROPERITONEUM: No retroperitoneal mass or adenopathy. REPRODUCTIVE: The prostate is enlarged and heterogeneous with somewhat lobulated contour. Dystrophic calcifications are noted. VASCULATURE ABDOMEN: The abdominal aorta is atherosclerotic, without aneurysm. MUSCULOSKELETAL ABDOMEN PELVIS: There is no acute osseous abnormality. 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 New destructive osseous lesion. Tiny sclerotic foci within the left ischial tuberosity and also in the left iliac bone on image number 118 are stable compared to the prior examination. There is grade 1 anterolisthesis of L4 on L5. There is some disc osteophyte at L2-3, and at L4-5 causing central canal stenosis and neural foraminal narrowing. MRI may be helpful in further evaluation if warranted clinically. OTHER: Tiny fat containing umbilical hernia. IMPRESSION: Postsurgical changes related to partial colonic resection with anastomosis in the region of the rectosigmoid. There is some stranding in the mesentery adjacent to the anastomosis, similar to the prior examination. The more conspicuous wall thickening suggested on the most recent prior examination is not convincingly demonstrated on the current examination. No evidence of metastatic disease within the chest, abdomen or pelvis. Stable 8 mm lucent lesion within the T7 vertebral body. Tiny elongated linear nodular opacity in the periphery of the right upper lobe, new compared to the prior examination, measuring 3 mm, with some hazy adjacent ground-glass. This is favored to be infectious or inflammatory in etiology. Attention on surveillance imaging recommended. Additional findings as above. THIS IS AN ELECTRONICALLY VERIFIED FINAL REPORT 12/30/2024 5:17 AM - Electronically signed by Alondra Cordon M.D. TW: MARLIEN Report ID: [id number] Reading Location: [id number] Procedure Note Alondra Cordon MD - 12/30/2024 EXAM DESCRIPTION: CT CHEST ABDOMEN PELVIS W CONTRAST REASON FOR STUDY: Colon cancer, assess treatment response, thoracic backpain, T7 lytic lesion and DDD noted in the thoracic region, prostatomegaly; thickening at the anastomosis site Colon cancer, assess treatment response, thoracic back pain, T7 lyticlesion and DDD noted in the thoracic region, prostatomegaly; thickening at the ansastamosis site, Malignant neoplasm of sigmoid colon (CMS/HCC) (HCC), Enlarged prostate, Lytic bone lesions on xray TECHNIQUE: CT scan of the chest, abdomen, and pelvis performed with intravenous and without oral contrast using helical scanning techniquewith dynamic intravenous contrast injection. Reconstructed coronal and sagittalMPR images reviewed. All images stored on PACS. Automated exposure control was used as a dose optimization technique for this examination. CONTRAST TYPE/DOSE: 100mL of IOVERSOL 350 MG IODINE/ML INTRAVENOUS SYRINGE injected via intravenous COMPARISON: 06/29/2024, 01/04/2024, 07/02/2023 FINDINGS: CHEST LUNGS: Tiny elongated linear nodular opacity in the periphery of theright upper lobe on images 30-31, new compared to the prior examinationmeasuring 3 mm, with some hazy adjacent ground-glass. Minimal subsegmental scarringand atelectasis. No pneumonic consolidation. The central airways are patent. PLEURA: No effusion. No pneumothorax. MEDIASTINUM/RITA: Partially calcified 1 cm nodule within the inferiorleft thyroid lobe, stable. There is no mediastinal or hilar lymphadenopathy. HEART: Heart size is normal with no pericardial effusion. VASCULATURE CHEST: There are coronary artery calcifications. Atherosclerotic calcification of the thoracic aorta, without aneurysm. No dissection. Main pulmonary trunk normal in caliber. AXILLA: No adenopathy. CHEST WALL: No masses. No subcutaneous air. HARDWARE/LINES/TUBES: None. MUSCULOSKELETAL CHEST: There is an 8 mm lucent lesion within the T7 vertebral body to the right of midline is stable in size. No new osseous lesion. ABDOMEN/PELVIS LIVER: The liver is within normal limits in size. There is nosuspicious hepatic lesion. GALLBLADDER: Cholelithiasis. No inflammatory changes. BILE DUCTS: No intrahepatic or extrahepatic ductal dilatation. SPLEEN: Normal size. No focal lesions. PANCREAS: No identified cystic or solid masses. No significant calcifications. No adjacent inflammation or peripancreatic fluidcollections. Pancreatic duct not dilated. ADRENALS: Normal. KIDNEYS/URINARY TRACT: No identified significant cystic or solid masses.No visualized stones. No hydronephrosis or hydroureter. Symmetricenhancement. The urinary bladder is decompressed, accentuating wall thickness, stablein appearance. GI: Stomach is unremarkable. Small bowel loops are within normal limitsin caliber. The appendix is normal. There is diverticulosis the colon.There are postsurgical changes related to partial colonic resection withanastomosis in the region of the rectosigmoid. There is some stranding adjacent tothe anastomotic site, which is similar to the previous examinations. The more conspicuous wall thickening suggested on the most recent prior examinationis not convincingly demonstrated on the current examination. Appearance is similar to that of December 2023. PERITONEUM: There is no free intraperitoneal air. There is no freefluid. No mesenteric adenopathy. Stranding in the mesentery adjacent to thecolonic anastomosis is similar. RETROPERITONEUM: No retroperitoneal mass or adenopathy. REPRODUCTIVE: The prostate is enlarged and heterogeneous with somewhat lobulated contour. Dystrophic calcifications are noted. VASCULATURE ABDOMEN: The abdominal aorta is atherosclerotic, without aneurysm. MUSCULOSKELETAL ABDOMEN PELVIS: There is no acute osseous abnormality. 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 New destructive osseous lesion. Tiny sclerotic foci within the left ischial tuberosity and also in theleft iliac bone on image number 118 are stable compared to the priorexamination. There is grade 1 anterolisthesis of L4 on L5. There is some discosteophyte at L2-3, and at L4-5 causing central canal stenosis and neural foraminal narrowing. MRI may be helpful in further evaluation if warrantedclinically. OTHER: Tiny fat containing umbilical hernia. IMPRESSION: Postsurgical changes related to partial colonic resection withanastomosis in the region of the rectosigmoid. There is some stranding in the mesentery adjacent to the anastomosis, similar to the prior examination. The more conspicuous wall thickening suggested on the most recent prior examinationis not convincingly demonstrated on the current examination. No evidence of metastatic disease within the chest, abdomen or pelvis. Stable 8 mm lucent lesion within the T7 vertebral body. Tiny elongated linear nodular opacity in the periphery of the right upper lobe, new compared to the prior examination, measuring 3 mm, with somehazy adjacent ground-glass. This is favored to be infectious or inflammatory in etiology. Attention on surveillance imaging recommended. Additional findings as above. THIS IS AN ELECTRONICALLY VERIFIED FINAL REPORT 12/30/2024 5:17 AM - Electronically signed by Alondra Cordon M.D. TW: TW Report ID: [id number] Reading Location: [place] [address] Lisa Rao COLD STORAGE SUPERINTENDENT IMG CT PROCEDURES Fi nal Result * PSA diagnostic (07/05/2024 7:32 AM CDT) [...] data last revised 22. Testing performed by: [facility], [address] [place] [address]., [id number] Blood 07/05/2024 7:32 AM CDT 07/05/2024 9:50 AM CDT Lisa Rao NP LAB BLOOD ORDERABLES Final Result ILANA [address] [facility] [place] [address] from Last 3 Months or Most Recently Relevant to Health Maintenance Insurance MEDICARE [facility] MEDICARE [facility] Care Teams Diesel Technician Relationship Specialty Start Date End Date Betty Gray DO PCP - General Family Medicine 03/31/22 Lisa Rao NP [address] [address] Nurse Practitioner Medical Oncology 01/01/23 Jak Johnson MD [address] [facility] [address] [facility] [address] [place] [address] Referring Physician Gastroenterology 07/05/24
--- OUTSIDE RECORDS SUMMARY | 2025-04-13 09:41 | XMS_ITS ---
Author Organization [facility] Address [address] [place] [address] Care Team Providers Care Medical Transcriptionist Name Role Phone Betty Gray Primary Care Provider +1- [phone] Lisa Rao BUSINESS EDUCATION INSTRUCTOR Unavailable +1- [phone] Jak Johnson MD Unavailable + Active Problems Problem Noted Date Diagnosed Date Malignant neoplasm of sigmoid colon 04/01/2022 Current Treatment and Therapy Plans No current plan information found. Past Treatment and Therapy Plans Line Care Plan Name Start Date [...]
--- OUTSIDE RECORDS SUMMARY | 2025-04-13 09:41 | XMS_ITS | Clinical Summary ---
Author Organization [facility] Address [address] [place] [address] Care Team Providers Care Metal Cutter Name Role Phone Betty Gary Primary Care Provider +1- [phone] Lisa Rao TELESCOPE MAINTENANCE Unavailable +1- [phone] Jak Johnson MD Unavailable + Allergies Active [...] History Medical History Date Comments Colon cancer (HCC) Multiple myeloma (HCC) Hypertension Hypercholesteremia Family [...] CDT Gender Identity Male 12/20/2024 8:54 AM COMMUNICATION EQUIPMENT MECHANIC Sexual Orientation Straight 12/20/2024 8: 54 AM COMMUNICATION EQUIPMENT MECHANIC Obstetrics History Last Filed Vital Signs Vital Sign Reading Time Taken Comments Blood Pressure 134/84 01/03/2025 7:57 AM COMMUNICATION EQUIPMENT MECHANIC Pulse 87 01/03/2025 7:57 AM COMMUNICATION EQUIPMENT MECHANIC Temperature 36.2 C (97.1 F) 01/03/2025 7:57 AM COMMUNICATION EQUIPMENT MECHANIC Respiratory Rate 18 01/03/2025 7:57 AM COMMUNICATION EQUIPMENT MECHANIC Oxygen Saturation 98% 01/03/2025 7:57 AM COMMUNICATION EQUIPMENT MECHANIC Inhaled Oxygen Concentration - - Weight 86.2 kg (190 lb) 01/03/2025 7:57 AM COMMUNICATION EQUIPMENT MECHANIC Height 177.8 cm (5' 10) 01/05/2024 8:09 AM COMMUNICATION EQUIPMENT MECHANIC Body Mass Index 27.26 01/05/2024 8:09 AM COMMUNICATION EQUIPMENT MECHANIC Plan of Treatment Health Maintenance Due Date Last Done Comments Colon Cancer Screening-Colonoscopy 1955 Depression Screening 1955 Fall Risk Assessment 1955 Hepatitis C Screening 1955 DTaP/Tdap/Td Vaccine (1 - Tdap) 1964 Hepatitis B Screening 1971 Zoster Vaccine (2 of 3) 12/06/2015 10/11/2015 Well Visit 65+ 2018 Covid-19 Vaccine (5 - 2023-2 5 season) 2024 08/22/2022, 10/09/2021, 12/11/2020, Additional history exists Influenza Vaccine (Season Ended) 2025 08/22/2022, 12/06/2021, 10/01/2020 Prostate Cancer Screening-PSA 07/05/2026, 01/05/2024, 07/09/2023 Pneumococcal vaccine 65+ Completed 10/01/2020, 02/2019 Abdominal Aortic Aneurysm (A AA) Screen Completed 12/27/2024, 06/29/2024, 01/04/2024, Additional history exists Procedures Procedure Name Priority Date/Time Associated Diagnosis Comments CT CHEST ABDOMEN PELVIS W CONTRAST Schedule Routine, Read Routine (OP Routine) 12/27/2024 8:08 AM COMMUNICATION EQUIPMENT MECHANIC Malignant neoplasm of sigmoid colon (HCC) Enlarged prostate Lytic bone lesions on xray PSA DIAGNOSTIC Routine 07/05/2024 7:32 AM CDT Enlarged prostate from Last 3 Months or Most Recently Relevant to Health Maintenance Results * CT Chest Abdomen Pelvis W Contrast (12/27/2024 8:08 AM COMMUNICATION EQUIPMENT MECHANIC) Anatomical Region Laterality Modality Body N/A Computed Tomogra phy 12/30/2024 5:03 AM COMMUNICATION EQUIPMENT MECHANIC Narrative 12/30/2024 5:17 AM COMMUNICATION EQUIPMENT MECHANIC EXAM DESCRIPTION: CT CHEST ABDOMEN PELVIS W [...] Alondra Cordon M.D. TW: TW Report ID: [id number] Reading Location: [id number] Procedure Note Alondra Cordon MD - 12/30/2024 [...] Electronically signed by Alondra Cordon M.D. TW: MARLINE Report ID: [id number] Reading Location: [place] [address] Lisa Rao NP IMG CT PROCEDURES Fi nal Result * [...] revised 22. Testing performed by: [facility], [address] [place] [address]., [id number] Blood 07/05/2024 7:32 AM CDT 07/05/2024 9:50 AM CDT Lisa Roa NP LAB BLOOD ORDERABLES Final Result [place] [id number] [facility] Department [place] [address] from Last 3 Months or Most Recently Relevant to Health Maintenance Insurance [facility]ICARE [facility] MEDICARE [facility] Care Teams Metal Cutter Relationship Specialty Start Date End Date Betty Gray DO PCP - General Family Medicine 03/31/22 Lisa Rao NP [address] [place] [address] Nurse Practitioner Medical Oncology 01/01/23 Jak Johnson MD [address] [place]STR[place]OLOG[place], [place] [id number] Referring Physician Gastroenterology 07/05/24
[2025-04-13 13:41] LABS: Alanine Aminotransferase 25 U/L (6-50); Albumin Level 4.1 g/dL (3.5-5.1); Alkaline Phosphatase 92 U/L (38-126); Anion Gap 4 mmol/L (4-12); Aspartate Amino Transferase 62 U/L (17-59); Bilirubin,Total 1.3 mg/dL (0.2-1.3); Blood Urea Nitrogen 13 mg/dL (9-20); Calcium 9.1 mg/dL (8.4-10.2); Carbon Dioxide 28 mmol/L (22-30); Chloride 105 mmol/L (98-107); Cholesterol 157 mg/dL (0-200); Estimated Glomerular Filt Rate 53; Glucose 90 mg/dL (65-110); HDL Direct 40 mg/dL; LDL Cholesterol Direct 72 mg/dL; Potassium 4.6 mmol/L (3.4-5.0); Sodium 137 mmol/L (137-145); Total Protein 6.8 g/dL (6.3-8.2); Triglycerides 148 mg/dL (<150)
[2025-04-13 14:24] LABS: Hemoglobin A1C 5.2 % (<5.7)
== END 2025-04-13 09:09 | disposition home or self-care (01) ==
PROVIDERS: PCP Family Medicine; Visit Provider Nurse Practitioner
DX: E78.5 Hyperlipidemia, unspecified (principal); R73.03 Prediabetes
CPT/HCPCS: 36415; 80053; 80061; 83036